=== PATIENT | female | born 1945 | race Hispanic/Latino ===

== ENCOUNTER → 2017-09-06 | Outpatient (CLI) | payer OTHER ==
[~2017-09-06] MED LIST: ASPI-555 PO; CARV12.580 PO; CARV25TA PO; CLOP75TA14 PO; FERR-82 PO; FURO40TA7 PO; INS7030 SQ; INSLAN SQ; INSU100I15 SQ; LISI-613 PO; METF10004 PO; NAPR-1023 PO; PANT20TA PO; POTA-79 PO; PRAV40TA3 PO; PRED20TA3 PO; REGADENOSON 0.4 MG/5 ML PF SYG IVP SCH
== END | disposition home or self-care (01) ==
LOC: SHCH 09:06
PROVIDERS: ATTEND Internal Medicine Cardiovascular Disease
DX: I25.10 Atherosclerotic heart disease of native coronary artery without angina pectoris (principal)
CPT/HCPCS: 78452; 93017; 96374; A9500 ×2; J2785

== ENCOUNTER → 2017-09-16 | Outpatient (CLI) | payer OTHER ==
[~2017-09-16] MED LIST changes: -REGADENOSON 0.4 MG/5 ML PF SYG IVP SCH
== END ==
LOC: OIH 09:03
PROVIDERS: ATTEND Family Medicine
DX: M77.31 Calcaneal spur, right foot (principal)
CPT/HCPCS: 73630

== ENCOUNTER 2017-10-11 08:03 | Observation (INO) | payer OTHER ==
[2017-10-07 10:14] VITALS: BP 149/67
[2017-10-07 10:23] LABS: EOSINOPHILS % (AUTO) 0.1 % (0.0-8.0); LYMPHOCYTES % (AUTO) 16.1 % (21.0-51.0); MEAN CORPUSCULAR HEMOGLOBIN 28.6 pg (27.0-33.0); MEAN CORPUSCULAR HGB CONC 33.9 g/dL (32.0-36.0); MEAN CORPUSCULAR VOLUME 84.2 fL (79-99); NEUTROPHILS % (AUTO) 79.8 % (40.0-77.0); PLATELET COUNT (AUTO) 173 K/uL (130-400); RED CELL DISTRIBUTION WIDTH 14.5 % (11.0-15.5); WHITE BLOOD COUNT (AUTO) 7.1 K/uL (4.8-10.8)
[2017-10-07 10:42] LABS: CREATININE 0.9 mg/dL (0.5-1.5); POTASSIUM 4.1 mmol/L (3.5-5.1)
[2017-10-07 10:55] LABS: INR 1.03 (0.85-1.15); PARTIAL THROMBOPLASTIN TIME 24.7 SEC (26.3-35.5); PROTHROMBIN TIME 10.8 SEC (9.6-11.6)
[2017-10-07 10:57] LABS: BILIRUBIN,URINE NEGATIVE (NEGATIVE); COLOR,URINE YELLOW (YELLOW); GLUCOSE, URINE (UA) NEGATIVE (NEGATIVE); KETONES,URINE NEGATIVE (NEGATIVE); LEUKOCYTE ESTERASE ,URINE LARGE (NEGATIVE); NITRATE,URINE NEGATIVE (NEGATIVE); OCCULT BLOOD,URINE TRACE-LYSED (NEGATIVE); PROTEIN,URINE TRACE (NEGATIVE)
[2017-10-07 11:03] LABS: APPEARANCE,URINE SLIGHTLY CLOUDY (CLEAR)
[2017-10-07 11:24] LABS: BACTERIA,URINE Few /HPF (None Seen); RBC,URINE 0-1 /HPF (0-1)
[2017-10-11] VITALS (12 sets, daily range): BP systolic 115–154; BP diastolic 60–78
[~2017-10-11] VITALS: Ht 167.6 cm; Wt 102.6 kg
[~2017-10-11 08:03] MED LIST changes: -ASPI-555 PO; -CARV12.580 PO; -FERR-82 PO; -INS7030 SQ; -PANT20TA PO
[2017-10-11] MEDS ORDERED: SODIUM CHLORIDE 0.9% 1000ML 1,000 ML IV ONE (09:06)
[2017-10-11] MEDS ORDERED: NITROGLYCERIN 5 MG/ML 10 ML VIAL IV ONE (10:45)
[2017-10-11] MEDS ORDERED: HEPARIN SODIUM 1000UNIT/ML 10ML VIAL ONE (10:45)
[2017-10-11] MEDS ORDERED: LIDOCAINE HCL 1% 20 ML VIAL ONE (10:45)
[2017-10-11] MEDS ORDERED: SODIUM BICARB 50MEQ 50ML VIAL ONE (10:45)
[2017-10-11] MEDS ORDERED: IOPAMIDOL-370 100 ML VIAL IV ONE (10:46)
[2017-10-11] MEDS ORDERED: ISOVUE-370 50ML VIAL IV ONE (10:46)
[2017-10-11] MEDS ORDERED: MIDAZOLAM HCL 1 MG/ML 2ML VIAL ONE ×2 (11:48→12:36)
[2017-10-11] MEDS ORDERED: MEPERIDINE-PF 25 MG/ML SYG ONE ×2 (11:48→12:36)
[2017-10-11] MEDS: SODIUM CHLORIDE 0.9% 1000ML 1,000 ML IV SCH (13:08)
[2017-10-11] MEDS ORDERED: ASPIRIN 81MG TAB.CHEW ONE (13:09)
[2017-10-11] MEDS ORDERED: ASPI-555 PO (13:14)
[2017-10-11] MEDS ORDERED: ONDANSETRON HCL MDV 20ML 2 MG/ML VIAL IVP PRN (13:15)
[2017-10-11] MEDS ORDERED: ALPRAZOLAM 0.5 MG TABLET PO PRN (13:15)
[2017-10-11] MEDS ORDERED: DEXTROSE 50%-WATER 50 ML DISP.SYRIN IV PRN (13:15)
[2017-10-11] MEDS: INSULIN HUMULIN R 100 UNIT/ML 3ML SQ SCH ×2 (17:27→21:00)
[2017-10-11] MEDS: INSULIN LISPRO 100 UNIT/ML 3ML SQ SCH (17:27)
[2017-10-11] MEDS: NAPROXEN 500 MG TABLET PO SCH (21:13)
[2017-10-11] MEDS: FUROSEMIDE 40 MG TABLET PO SCH (21:14)
[2017-10-11] MEDS: LISINOPRIL 20 MG TABLET PO SCH (21:14)
[2017-10-11] MEDS: CARVEDILOL 25 MG TABLET PO SCH (21:14)
[2017-10-12 03:48] VITALS: BP 155/98
[2017-10-12 04:26] LABS: MEAN CORPUSCULAR HEMOGLOBIN 28.4 pg (27.0-33.0); MEAN CORPUSCULAR HGB CONC 33.8 g/dL (32.0-36.0); MEAN CORPUSCULAR VOLUME 83.9 fL (79-99); PLATELET COUNT (AUTO) 185 K/uL (130-400); RED BLOOD CELL COUNT(AUTO) 4.06 MIL/uL (4.00-5.50); RED CELL DISTRIBUTION WIDTH 14.9 % (11.0-15.5); WHITE BLOOD COUNT (AUTO) 5.6 K/uL (4.8-10.8)
[2017-10-12 04:44] LABS: CREATININE 0.7 mg/dL (0.5-1.5); POTASSIUM 3.6 mmol/L (3.5-5.1)
[2017-10-12] MEDS: SODIUM CHLORIDE 0.9% 1000ML 1,000 ML IV SCH (05:34)
[2017-10-12] MEDS: INSULIN HUMULIN R 100 UNIT/ML 3ML SQ SCH (06:02)
[2017-10-12 07:46] VITALS: BP 133/64
[2017-10-12] MEDS ORDERED: INSULIN GLARGINE 100 UNITS/ML 10 ML VIAL SQ SCH (08:00)
[2017-10-12] MEDS: FUROSEMIDE 40 MG TABLET PO SCH (08:56)
[2017-10-12] MEDS: NAPROXEN 500 MG TABLET PO SCH (08:56)
[2017-10-12 08:57] VITALS: BP 133/64
[2017-10-12] MEDS: CARVEDILOL 25 MG TABLET PO SCH (08:57)
[2017-10-12] MEDS: LISINOPRIL 20 MG TABLET PO SCH (08:57)
[2017-10-12] MEDS ORDERED: ASPIRIN 81MG TAB.CHEW PO SCH (09:00)
[2017-10-12] MEDS ORDERED: PREDNISONE 20 MG TABLET PO SCH (09:00)
[2017-10-12] MEDS ORDERED: ATORVASTATIN CALCIUM 10 MG TABLET PO SCH (09:00)
[2017-10-12] MEDS: INSULIN LISPRO 100 UNIT/ML 3ML SQ SCH (09:00)
[2017-10-12] MEDS ORDERED: CLOPIDOGREL BISULFATE 75 MG TAB PO SCH (09:00)
[2017-10-12] MEDS ORDERED: POTASSIUM CHLORIDE 20 MEQ ERTAB PO SCH (09:00)
== END 2017-10-12 11:40 | disposition home or self-care (01) ==
LOC: DAH 08:03 → 2AH 08:04 → DAH 08:04
PROVIDERS: ADMIT Family Medicine; ATTEND Internal Medicine Cardiovascular Disease
DX: I25.119 Atherosclerotic heart disease of native coronary artery with unspecified angina pectoris (principal); I11.0 Hypertensive heart disease with heart failure; I25.5 Ischemic cardiomyopathy; K21.9 Gastro-esophageal reflux disease without esophagitis; J44.9 Chronic obstructive pulmonary disease, unspecified; E11.9 Type 2 diabetes mellitus without complications; E78.5 Hyperlipidemia, unspecified; E66.9 Obesity, unspecified; Z95.5 Presence of coronary angioplasty implant and graft; Z79.899 Other long term (current) drug therapy
CPT/HCPCS: 36415 ×3; 71045; 80048 ×2; 80061; 81001; 82948 ×4; 85025; 85027; 85347 ×2; 85610; 85730; 92921; 93005 ×2; 93459; 96372 ×2; A4606; C1725; C1760; C1769 ×2; C1874; C1887; C1894; C9600; G0378 ×28; J1644; J2175 ×2; J2250 ×2; J3490 ×2; J7030 ×2; Q9967 ×2; 99152; 99153

== ENCOUNTER → 2018-04-13 | Outpatient (CLI) | payer OTHER ==
[~2018-04-13] MED LIST changes: +ASPI-555 PO; +METF-446 PO; -METF10004 PO
== END | disposition home or self-care (01) ==
LOC: OIH 16:20
PROVIDERS: ATTEND Family Medicine
DX: M80.012 Age-related osteoporosis with current pathological fracture, left shoulder (principal); M85.812 Other specified disorders of bone density and structure, left shoulder; J44.9 Chronic obstructive pulmonary disease, unspecified; K21.9 Gastro-esophageal reflux disease without esophagitis; I10 Essential (primary) hypertension; E78.5 Hyperlipidemia, unspecified; Z87.891 Personal history of nicotine dependence
CPT/HCPCS: 73030

== ENCOUNTER → 2018-09-29 | Outpatient (CLI) | payer OTHER | END | disposition home or self-care (01) | LOC: RAH 10:06 | PROVIDERS: ATTEND Family Medicine | DX: Z12.31 Encounter for screening mammogram for malignant neoplasm of breast (principal) | CPT/HCPCS: 77067 ==

== ENCOUNTER → 2019-01-09 | Outpatient (CLI) | payer OTHER | END | disposition home or self-care (01) | LOC: SHCH 10:09 | PROVIDERS: ATTEND Internal Medicine Cardiovascular Disease | DX: I65.23 Occlusion and stenosis of bilateral carotid arteries (principal) | CPT/HCPCS: 93880 ==

== ENCOUNTER → 2019-04-20 | Outpatient (CLI) | payer OTHER | END | disposition home or self-care (01) | LOC: OIH 15:26 | PROVIDERS: ATTEND Family Medicine | DX: M79.641 Pain in right hand (principal) | CPT/HCPCS: 73130 ==

== ENCOUNTER 2019-11-24 10:47 | Observation (INO) | payer OTHER ==
[~2019-11-24] VITALS: Ht 170.2 cm; Wt 97.2 kg
[~2019-11-24 10:47] MED LIST changes: -ASPI-555 PO; +ASPI-556 PO
[2019-11-24 11:00] LABS: BASOPHILS % (AUTO) 0.4 % (0.0-5.0); EOSINOPHILS % (AUTO) 1.1 % (0.0-8.0); HEMATOCRIT 31.8 % (36-48); LYMPHOCYTES % (AUTO) 34.5 % (21.0-51.0); MEAN CORPUSCULAR HEMOGLOBIN 27.7 pg (27.0-33.0); MEAN CORPUSCULAR HGB CONC 32.7 g/dL (32.0-36.0); MEAN CORPUSCULAR VOLUME 84.8 fL (79-99); NEUTROPHILS % (AUTO) 56.6 % (40.0-77.0); PLATELET COUNT (AUTO) 192 K/uL (130-400); RED BLOOD CELL COUNT(AUTO) 3.75 MIL/uL (4.00-5.50); WHITE BLOOD COUNT (AUTO) 5.3 K/uL (4.8-10.8)
[2019-11-24] MEDS ORDERED: ASPIRIN 325 MG TABLET ONE (11:02)
[2019-11-24 11:14] LABS: CREATININE 1.2 mg/dL (0.5-1.5); POTASSIUM 4.1 mmol/L (3.5-5.1)
[2019-11-24 11:23] LABS: ALBUMIN 3.5 g/dL (3.5-5.0); BILIRUBIN,TOTAL 0.3 mg/dL (0.2-1.0); TOTAL PROTEIN, SERUM 7.3 g/dL (6.0-8.3)
[2019-11-24 11:26] LABS: INR 0.96 (0.85-1.15); PARTIAL THROMBOPLASTIN TIME 26.1 SEC (26.3-35.5); PROTHROMBIN TIME 10.4 SEC (9.6-11.6)
[2019-11-24] MEDS ORDERED: ACETAMINOPHEN 325 MG TAB PO PRN ×2 (18:15)
[2019-11-24] MEDS ORDERED: POTASSIUM CHLORIDE 10% ELIXIR 20 MEQ/15 ML UDCUP PO PRN (18:15)
[2019-11-24] MEDS ORDERED: NITROGLYCERIN 0.4 MG SL TAB SL PRN (18:15)
[2019-11-24] MEDS ORDERED: ONDANSETRON HCL 4 MG/2 ML VIAL IVP PRN (18:15)
[2019-11-24] MEDS ORDERED: POTASSIUM CHLORIDE 20MEQ/100ML 100 ML IV PRN (18:15)
[2019-11-24] MEDS ORDERED: GLUCAGON 1MG KIT 1 MG ML IM PRN (18:15)
[2019-11-24] MEDS ORDERED: DEXTROSE 50%-WATER 50 ML DISP.SYRIN IV PRN (18:15)
[2019-11-24] MEDS ORDERED: LIDOCAINE HCL-MPF 1% 2ML VIAL IJ PRN (18:15)
[2019-11-24] MEDS ORDERED: DIPHENHYDRAMINE HCL 25 MG CAPSULE PO PRN (18:15)
[2019-11-24] MEDS ORDERED: LACTULOSE 20 GM/30 ML UDCUP PO PRN (18:15)
[2019-11-24] MEDS ORDERED: ZOLPIDEM TARTRATE 5 MG TAB PO PRN (18:15)
[2019-11-24] MEDS ORDERED: GUAIFENESIN-DM 200/20 MG 10 ML PO PRN (18:15)
[2019-11-24] MEDS ORDERED: CLONIDINE HCL 0.1 MG TABLET PO PRN (18:15)
[2019-11-24] MEDS ORDERED: MAG HYDROX/AL HYDROX/SIMETH ES 30 ML SUSP UDCUP PO PRN (18:15)
[2019-11-24] MEDS ORDERED: DiphenhydrAMINE HCL 50 MG/ML VIAL IVP PRN (18:15)
[2019-11-24] MEDS ORDERED: SODIUM CHLORIDE 0.9% 10 ML VIAL IVP SCH (18:15)
[2019-11-24 19:45] VITALS: BP 140/71
[2019-11-24] MEDS: INSULIN R PO SSI SQ SCH (21:00)
[2019-11-24] MEDS ORDERED: INSU100V3 IJ (22:10)
[2019-11-24] MEDS ORDERED: ATOR10 PO (22:10)
[2019-11-24] MEDS ORDERED: HC130O TP (22:10)
[2019-11-24] MEDS ORDERED: TRAM50TA4 PO (22:10)
[2019-11-24] MEDS ORDERED: IBUP-2077 PO (22:10)
[2019-11-24] MEDS ORDERED: LISI2.5T2 PO (22:10)
[2019-11-24] MEDS ORDERED: LISINOPRIL 2.5 MG TABLET ONE (22:55)
[2019-11-24] MEDS ORDERED: CARVEDILOL 25 MG TABLET PO ONE (22:55)
[2019-11-24] MEDS ORDERED: ATORVASTATIN CALCIUM 20 MG TABLET ONE (22:55)
[2019-11-24 23:09] VITALS: BP 146/71
[2019-11-24] MEDS ORDERED: NITROGLYCERIN 1GM/1 INCH PACKET TD SCH (23:30)
[2019-11-24] MEDS ORDERED: MAGNESIUM 2GM PREMIX 50ML 50 ML IV ONE (23:35)
[2019-11-24 23:53] LABS: TROPONIN I 0.06 ng/mL (0.00-0.06)
[2019-11-25] MEDS ORDERED: NITROGLYCERIN 1GM/1 INCH PACKET TD ONE (00:44)
[2019-11-25 04:00] VITALS: BP 110/68
[2019-11-25 04:34] LABS: HEMATOCRIT 29.2 % (36-48); MEAN CORPUSCULAR HEMOGLOBIN 26.6 pg (27.0-33.0); MEAN CORPUSCULAR HGB CONC 31.5 g/dL (32.0-36.0); MEAN CORPUSCULAR VOLUME 84.4 fL (79-99); RED BLOOD CELL COUNT(AUTO) 3.46 MIL/uL (4.00-5.50); RED CELL DISTRIBUTION WIDTH 14.2 % (11.0-15.5); WHITE BLOOD COUNT (AUTO) 4.7 K/uL (4.8-10.8)
[2019-11-25 05:00] LABS: ALBUMIN 3.2 g/dL (3.5-5.0); BILIRUBIN,TOTAL 0.4 mg/dL (0.2-1.0); POTASSIUM 3.3 mmol/L (3.5-5.1); TOTAL PROTEIN, SERUM 6.6 g/dL (6.0-8.3); TROPONIN I 0.05 ng/mL (0.00-0.06)
[2019-11-25] MEDS: POTASSIUM CHLORIDE 20 MEQ ERTAB PO PRN ×2 (05:46→15:33)
[2019-11-25] MEDS: INSULIN R PO SSI SQ SCH ×4 (06:28→20:05)
[2019-11-25] MEDS ORDERED: HYDROCORTISONE 1% 28.35 GM CREAM TP PRN (06:30)
[2019-11-25] MEDS: NITROGLYCERIN 1GM/1 INCH PACKET TD SCH ×2 (06:30→15:28)
[2019-11-25 08:00] VITALS: BP 122/70
[2019-11-25] MEDS: CARVEDILOL 25 MG TABLET PO SCH ×2 (08:52→21:20)
[2019-11-25] MEDS: POTASSIUM CHLORIDE 20 MEQ ERTAB PO SCH ×2 (08:53→12:53)
[2019-11-25] MEDS: CLOPIDOGREL BISULFATE 75 MG TAB PO SCH (08:54)
[2019-11-25] MEDS: METFORMIN HCL 500 MG TABLET PO SCH ×2 (08:54→16:20)
[2019-11-25] MEDS: TRAMADOL HCL 50 MG TABLET PO SCH ×2 (08:54→21:19)
[2019-11-25] MEDS: FUROSEMIDE 40 MG TABLET PO SCH ×2 (08:54→21:19)
[2019-11-25 11:24] VITALS: BP 136/56
[2019-11-25 11:55] LABS: TROPONIN I 0.04 ng/mL (0.00-0.06)
--- NOTE | 2019-11-25 15:22 | NUR ---
cm note met with patient and states resides at home with adult great grandson, and adult handicap daughter. pt ambulates with cane at times. independent with adls. no provider. dc plan is back to home at hi. no dc needs. Addendum: 11/25/19 at 1526 by HOLLY CHRISTIANSON CM Amended: Links added.
[2019-11-25 16:00] VITALS: BP 102/61
--- NOTE | 2019-11-25 16:01 | NUR ---
NEW CONSULT DR CALVIN RETURN PAGE, PATIENT INFORMATION GIVEN , HE WAS GIVEN THE NAME OF DEFIBRILLATOR [employer] AND PHONE NUMBER. HE WILL FOLLOW-UP ON WHY THEY SAY THEY CAN'T INTERROGATE DEVICE AT THIS TIME.
[2019-11-25 19:05] VITALS: BP 142/71
[2019-11-25] MEDS: LISINOPRIL 2.5 MG TABLET PO SCH (21:00)
[2019-11-25] MEDS: ASPIRIN 81MG TAB.CHEW PO SCH (21:18)
[2019-11-25] MEDS: ATORVASTATIN CALCIUM 10 MG TABLET PO SCH (21:18)
[2019-11-25] MEDS: RANOLAZINE 500 MG TAB.SR.12H PO SCH (21:18)
[2019-11-25 23:06] VITALS: BP 125/66
[2019-11-26 03:33] VITALS: BP 103/67
[2019-11-26] MEDS: MAGNESIUM 2GM PREMIX 50ML 50 ML IV PRN (03:59)
[2019-11-26] MEDS: NITROGLYCERIN 1GM/1 INCH PACKET TD SCH ×4 (05:47→20:23)
[2019-11-26] MEDS: INSULIN R PO SSI SQ SCH ×4 (05:52→21:00)
[2019-11-26] MEDS: METFORMIN HCL 500 MG TABLET PO SCH ×2 (08:00→16:27)
--- NOTE | 2019-11-26 08:00 | NUR ---
PT AAO X 3 REVIEW PLAN OF CARE FOR TODAY, DENIES ANY CHEST PAIN . PT HAS A TELE MONITOR ON. HX OF A-FIB . DENIES ANY DISCOMFORT AND REVIEW CALL LIGHT IN REACH.
[2019-11-26 08:03] VITALS: BP 135/64
[2019-11-26 08:04] VITALS: BP 135/64
[2019-11-26] MEDS: RANOLAZINE 500 MG TAB.SR.12H PO SCH ×2 (08:28→20:20)
[2019-11-26] MEDS: ASPIRIN 81MG TAB.CHEW PO SCH (08:29)
[2019-11-26] MEDS: CARVEDILOL 25 MG TABLET PO SCH ×2 (08:29→20:22)
[2019-11-26] MEDS: FUROSEMIDE 40 MG TABLET PO SCH ×2 (08:30→20:21)
[2019-11-26] MEDS: POTASSIUM CHLORIDE 20 MEQ ERTAB PO SCH (08:30)
[2019-11-26] MEDS: CLOPIDOGREL BISULFATE 75 MG TAB PO SCH (08:32)
[2019-11-26] MEDS: TRAMADOL HCL 50 MG TABLET PO SCH ×2 (08:33→20:24)
[2019-11-26 10:49] VITALS: BP 115/76
--- NOTE | 2019-11-26 14:37 | NUR ---
STAFF FOR THE [employer] DEVICE AT THE BEDSIDE TO INTEROGATE . WITH DETAILS EXPLAIN TO PT ALSO LET HIM KNOW THAT DILLON CORONA WANTED TO SPEAK WITH HIM OF RESULTS STAFF PERSONAL CALLED HIM OF OUTCOME. AND ALSO ORDERS FOR A LEXICAN CARDIOLITE FOR AM . EXPLAIN IN DETAILS TO PT. AND STATED THAT SHE DID NOT KNOW WHY THINGS WERE NOT DONE UPSET REVIEW QUESTIONS AND CALL LIGHT IN REACH
[2019-11-26 15:17] VITALS: BP 147/70
--- NOTE | 2019-11-26 17:30 | NUR ---
PT HX OF DIABETIC. PT IS ON MELFORMIN 1000 MG BID DID NOT GIVEN DOSES ? POSSIBLE PT . PENDING PROCEDURE, ? CONTRAST . EXPLAIN TO HER REGARDING POSSIBLE STUDIES , OKAY NOT TO GIVE THEM FOR NOW . PT IS COVER WITH REG INSULIN SCALE ONE WITH BLOOD SUGARS CHECKS [facility]
[2019-11-26 19:00] VITALS: BP 144/75
[2019-11-26] MEDS: LISINOPRIL 2.5 MG TABLET PO SCH (20:21)
[2019-11-26] MEDS: ATORVASTATIN CALCIUM 10 MG TABLET PO SCH (20:21)
[2019-11-27] VITALS: BP 121/64
[2019-11-27 04:00] VITALS: BP 132/71
[2019-11-27] MEDS: NITROGLYCERIN 1GM/1 INCH PACKET TD SCH ×2 (06:30→14:30)
[2019-11-27] MEDS: INSULIN R PO SSI SQ SCH ×3 (06:47→16:52)
[2019-11-27 07:50] LABS: MAGNESIUM 1.6 mg/dL (1.80-2.40); POTASSIUM 3.8 mmol/L (3.5-5.1)
[2019-11-27 07:52] VITALS: BP 133/66
[2019-11-27] MEDS: METFORMIN HCL 500 MG TABLET PO SCH ×2 (08:00→16:50)
[2019-11-27] MEDS: TRAMADOL HCL 50 MG TABLET PO SCH (09:00)
[2019-11-27] MEDS: MAGNESIUM 2GM PREMIX 50ML 50 ML IV PRN (09:07)
[2019-11-27] MEDS ORDERED: REGADENOSON 0.4 MG/5 ML PF SYG IVP SCH (10:45)
[2019-11-27 13:40] VITALS: BP 145/65
[2019-11-27] MEDS: FUROSEMIDE 40 MG TABLET PO SCH (13:55)
[2019-11-27] MEDS: RANOLAZINE 500 MG TAB.SR.12H PO SCH (13:55)
[2019-11-27] MEDS: ASPIRIN 81MG TAB.CHEW PO SCH (13:56)
[2019-11-27] MEDS: CLOPIDOGREL BISULFATE 75 MG TAB PO SCH (13:57)
[2019-11-27] MEDS: CARVEDILOL 25 MG TABLET PO SCH (13:58)
[2019-11-27] MEDS: POTASSIUM CHLORIDE 20 MEQ ERTAB PO SCH (13:58)
--- NOTE | 2019-11-27 15:45 | NUR ---
CARDIOLOGY DILLON POWELL CALLED AND SAID THAT DR PALMA HAS SEEN THE RESULTS OF LEXISCAN. DILLON SPOKE TO PATIENT REGUARDING RESULTS AND AT THIS TIME ONLY TREATMENT WILL BE MEDICAL MANAGEMENT. PATIENT CAN BE DISCHARGED HOME PER CARDIOLOGY. FOLLOW UP WITH DILLON AT CLINIC ON TUESDAY AT 8AM.
--- NOTE | 2019-11-27 16:00 | NUR ---
DR OVI DIOR UPDATED ON CARDIOLOGY RECOMMENDATIONS. PATIENT CAN BE DISCHARGED HOME AND FOLLOW UP WITH DR DIOR IN 2 DAYS. HOME MEDS TO CONTINUE.
[2019-11-27 16:25] VITALS: BP 134/63
--- NOTE | 2019-11-27 17:20 | NUR ---
DISCHARGE DISCHARGE INSTRUCTIONS GIVEN TO PATIENT, VERBALIZED UNDERSTANDING. CALLED DAUGHTER ROLENA TO EXPLAIN DISCHARGE INSTRUCTIONS, VERBALIZED UNDERSTANDING. DISCONTINUED IV, REMOVED TELEMETRY. NO NEW PRESCRIPTIONS GIVEN.
[2019-11-27] MEDS ORDERED: ATORVASTATIN CALCIUM 20 MG TABLET PO SCH (21:00)
== END 2019-11-27 17:30 | disposition home or self-care (01) ==
LOC: EDH 10:47 → EDHIP 17:40 → 4BH 19:38
PROVIDERS: ADMIT Family Medicine; ATTEND Family Medicine
DX: R07.2 Precordial pain (principal); I25.10 Atherosclerotic heart disease of native coronary artery without angina pectoris; I11.0 Hypertensive heart disease with heart failure; I50.22 Chronic systolic (congestive) heart failure; E78.5 Hyperlipidemia, unspecified; I25.5 Ischemic cardiomyopathy
CPT/HCPCS: 36415 ×3; 71045; 78452; 80053 ×2; 82550 ×4; 82948 ×12; 83735 ×4; 83874 ×3; 83880; 84132; 84484 ×5; 85025; 85027; 85610; 85730; 93005; 93017; 96365; 96366 ×3; A9500 ×2; G0378 ×8; J1815 ×3; J2785; J3475 ×3; 96374

== ENCOUNTER → 2019-12-27 | Outpatient (CLI) | payer OTHER | END | disposition home or self-care (01) | LOC: SHCH 07:44 | PROVIDERS: ATTEND Internal Medicine Cardiovascular Disease | DX: I51.7 Cardiomegaly (principal); I25.5 Ischemic cardiomyopathy ==

== ENCOUNTER → 2020-05-08 | Outpatient (CLI) | payer OTHER ==
[~2020-05-08] MED LIST changes: -ASPI-556 PO; +ATOR10 PO; +HC130O TP; +IBUP-2077 PO; -INSU100I15 SQ; +INSU100V3 IJ; -LISI-613 PO; +LISI2.5T2 PO; -NAPR-1023 PO; -PRAV40TA3 PO; -PRED20TA3 PO; +TRAM50TA4 PO
== END | disposition home or self-care (01) ==
LOC: OIH 07:37
PROVIDERS: ATTEND Family Medicine
DX: H57.11 Ocular pain, right eye (principal); R68.84 Jaw pain
CPT/HCPCS: 70150

== ENCOUNTER → 2020-05-30 | Outpatient (CLI) | payer OTHER | END | disposition home or self-care (01) | LOC: RAH 13:53 | PROVIDERS: ATTEND Family Medicine | DX: Z12.31 Encounter for screening mammogram for malignant neoplasm of breast (principal); N64.89 Other specified disorders of breast | CPT/HCPCS: 77067 ==

== ENCOUNTER 2020-08-31 15:11 | Emergency (ER) | payer OTHER ==
[2020-08-31 15:36] LABS: BASOPHILS % (AUTO) 0.8 % (0.0-5.0); EOSINOPHILS % (AUTO) 1.3 % (0.0-8.0); HEMATOCRIT 30.2 % (36-48); LYMPHOCYTES % (AUTO) 34.3 % (21.0-51.0); MEAN CORPUSCULAR HEMOGLOBIN 27.1 pg (27.0-33.0); MEAN CORPUSCULAR HGB CONC 30.5 g/dL (32.0-36.0); MEAN CORPUSCULAR VOLUME 89.1 fL (79-99); MONOCYTES % (AUTO) 9.2 % (3.0-13.0); NEUTROPHILS % (AUTO) 54.1 % (40.0-77.0); PLATELET COUNT (AUTO) 126 K/uL (130-400); RED BLOOD CELL COUNT(AUTO) 3.39 MIL/uL (4.00-5.50); RED CELL DISTRIBUTION WIDTH 14.4 % (11.0-15.5); WHITE BLOOD COUNT (AUTO) 3.8 K/uL (4.8-10.8)
[2020-08-31 15:45] LABS: POTASSIUM 4.4 mmol/L (3.5-5.1)
[2020-08-31 15:50] LABS: ALBUMIN 3.5 g/dL (3.5-5.0); BILIRUBIN,TOTAL 0.3 mg/dL (0.2-1.0); TOTAL PROTEIN, SERUM 6.9 g/dL (6.0-8.3)
[2020-08-31 16:34] LABS: APPEARANCE,URINE Clear (CLEAR); BILIRUBIN,URINE Negative (NEGATIVE); COLOR,URINE Yellow (YELLOW); GLUCOSE, URINE (UA) Negative (NEGATIVE); KETONES,URINE Negative (NEGATIVE); LEUKOCYTE ESTERASE ,URINE Trace (NEGATIVE); NITRATE,URINE Negative (NEGATIVE); OCCULT BLOOD,URINE Negative (NEGATIVE); PH,URINE 5.5 (5.0-8.0); PROTEIN,URINE POS 1+ mg/dL (NEGATIVE)
[2020-08-31 17:00] LABS: BACTERIA,URINE Few /HPF (None Seen); MUCUS,URINE Few LPF (None Seen); RBC,URINE 0-1 /HPF (0-1); SQUAMOUS EPITHELIAL CELL,UR 0-2 /HPF (0-2)
== END 2020-08-31 18:11 | disposition home or self-care (01) ==
LOC: EDH 15:11
DX: K42.9 Umbilical hernia without obstruction or gangrene (principal); M54.9 Dorsalgia, unspecified; M48.55XA Collapsed vertebra, not elsewhere classified, thoracolumbar region, initial encounter for fracture; Z68.42 Body mass index [BMI] 45.0-49.9, adult; E66.09 Other obesity due to excess calories; I48.91 Unspecified atrial fibrillation; E11.9 Type 2 diabetes mellitus without complications; I10 Essential (primary) hypertension
CPT/HCPCS: 36415; 74176; 80053; 81001; 83690; 84484; 85025; 93005

== ENCOUNTER → 2020-09-16 | Outpatient (CLI) | payer OTHER | END | disposition home or self-care (01) | LOC: RAH 08:34 | PROVIDERS: ATTEND Internal Medicine | DX: R16.0 Hepatomegaly, not elsewhere classified (principal); K76.9 Liver disease, unspecified; Z90.49 Acquired absence of other specified parts of digestive tract | CPT/HCPCS: 76700 ==

== ENCOUNTER 2020-09-23 07:12 | Day surgery (SDC) | payer OTHER ==
[~2020-09-23] VITALS: Ht 172.7 cm; Wt 102.1 kg
[~2020-09-23 07:12] MED LIST changes: +SODIUM CHLORIDE 0.9% 1000ML 1,000 ML IV ONE
[2020-09-23] MEDS ORDERED: PROPOFOL 10 MG/ML 20ML VIAL IV ONE (10:24)
[2020-09-23] MEDS ORDERED: EPHEDRINE SULFATE 50 MG/ML AMPULE ONE (10:46)
[2020-09-23 10:58] VITALS: BP 121/55
[2020-09-23 11:04] VITALS: BP 130/62
[2020-09-23 11:09] VITALS: BP 133/66
[2020-09-23 11:14] VITALS: BP 142/73
[2020-09-23 11:20] VITALS: BP 139/79
== END 2020-09-23 11:52 | disposition home or self-care (01) ==
LOC: DAH 07:12 → ENDO 07:12
PROVIDERS: ATTEND Internal Medicine
DX: D50.9 Iron deficiency anemia, unspecified (principal); Z20.822 Contact with and (suspected) exposure to COVID-19; K57.30 Diverticulosis of large intestine without perforation or abscess without bleeding; K64.8 Other hemorrhoids; K31.89 Other diseases of stomach and duodenum; K76.89 Other specified diseases of liver; E11.9 Type 2 diabetes mellitus without complications; E78.5 Hyperlipidemia, unspecified; I11.0 Hypertensive heart disease with heart failure; I50.9 Heart failure, unspecified; I25.10 Atherosclerotic heart disease of native coronary artery without angina pectoris; I48.91 Unspecified atrial fibrillation; I45.10 Unspecified right bundle-branch block; I25.2 Old myocardial infarction; M81.0 Age-related osteoporosis without current pathological fracture; M19.90 Unspecified osteoarthritis, unspecified site; Z90.49 Acquired absence of other specified parts of digestive tract; Z95.1 Presence of aortocoronary bypass graft; Z95.5 Presence of coronary angioplasty implant and graft; Z79.84 Long term (current) use of oral hypoglycemic drugs; Z79.899 Other long term (current) drug therapy
CPT/HCPCS: 43239; 45378; 82948; 93005; A4215 ×2; A4221; A4222; A4223; A4606; A4620; A4657; A4663; C9803; J2704; J3490; J7030; U0003

== ENCOUNTER 2020-10-10 17:06 | Emergency (ER) | payer OTHER ==
[~2020-10-10 17:06] MED LIST changes: -SODIUM CHLORIDE 0.9% 1000ML 1,000 ML IV ONE
[2020-10-10] MEDS ORDERED: KETOROLAC TROMETHAMINE 30MG/ML ONE (17:57)
== END 2020-10-10 19:01 | disposition home or self-care (01) ==
LOC: EDH 17:06
DX: S90.31XA Contusion of right foot, initial encounter (principal); E11.9 Type 2 diabetes mellitus without complications; I10 Essential (primary) hypertension; Z88.6 Allergy status to analgesic agent; W18.39XA Other fall on same level, initial encounter; Y93.89 Activity, other specified; Y92.098 Other place in other non-institutional residence as the place of occurrence of the external cause; Y99.8 Other external cause status
CPT/HCPCS: 73630; 96372; 99283; J1885

== ENCOUNTER → 2020-11-04 | Outpatient (CLI) | payer OTHER | END | disposition home or self-care (01) | LOC: OIH 09:48 | PROVIDERS: ATTEND Family Medicine | DX: S92.811A Other fracture of right foot, initial encounter for closed fracture (principal); M77.31 Calcaneal spur, right foot; M85.871 Other specified disorders of bone density and structure, right ankle and foot; X58.XXXA Exposure to other specified factors, initial encounter; Y93.89 Activity, other specified; Y92.89 Other specified places as the place of occurrence of the external cause; Y99.8 Other external cause status | CPT/HCPCS: 73630 ==

== ENCOUNTER → 2021-09-07 | Outpatient (CLI) | payer OTHER ==
[~2021-09-07] VITALS: Ht 152.4 cm; Wt 100.7 kg
[~2021-09-07] MED LIST changes: +LISI2.5T13 PO; -LISI2.5T2 PO; +REGADENOSON 0.4 MG/5 ML PF SYG IVP SCH
== END | disposition home or self-care (01) ==
LOC: SHCH 08:33
PROVIDERS: ATTEND Internal Medicine Cardiovascular Disease
DX: I48.91 Unspecified atrial fibrillation (principal); I10 Essential (primary) hypertension; I51.7 Cardiomegaly; R94.39 Abnormal result of other cardiovascular function study; R94.31 Abnormal electrocardiogram [ECG] [EKG]
CPT/HCPCS: 78452; 93017; 96374; A9500 ×2; J2785

== ENCOUNTER 2021-09-29 23:09 | Emergency (ER) | payer OTHER ==
[~2021-09-29] VITALS: Ht 167.6 cm; Wt 102.1 kg
[~2021-09-29 23:09] MED LIST changes: -REGADENOSON 0.4 MG/5 ML PF SYG IVP SCH
[2021-09-29 23:34] LABS: BASOPHILS % (AUTO) 0.3 % (0.0-5.0); EOSINOPHILS % (AUTO) 1.3 % (0.0-8.0); HEMATOCRIT 36.9 % (36-48); LYMPHOCYTES % (AUTO) 34.3 % (21.0-51.0); MEAN CORPUSCULAR HEMOGLOBIN 27.8 pg (27.0-33.0); MEAN CORPUSCULAR HGB CONC 31.2 g/dL (32.0-36.0); MEAN CORPUSCULAR VOLUME 89.1 fL (79-99); NEUTROPHILS % (AUTO) 54.8 % (40.0-77.0); PLATELET COUNT (AUTO) 170 K/uL (130-400); RED BLOOD CELL COUNT(AUTO) 4.14 MIL/uL (4.00-5.50); RED CELL DISTRIBUTION WIDTH 14.1 % (11.0-15.5); WHITE BLOOD COUNT (AUTO) 6.4 K/uL (4.8-10.8)
[2021-09-29 23:45] LABS: CREATININE 1.4 mg/dL (0.5-1.5); POTASSIUM 4.8 mmol/L (3.5-5.1)
[2021-09-29 23:52] LABS: ALBUMIN 3.7 g/dL (3.5-5.0); BILIRUBIN,TOTAL 0.4 mg/dL (0.2-1.0); TOTAL PROTEIN, SERUM 7.7 g/dL (6.0-8.3)
[2021-09-30] MEDS ORDERED: KETOROLAC 15MG/ML VIAL (15MG/ML) IV ONE
[2021-09-30 02:30] VITALS: BP 116/52
== END 2021-09-30 02:46 | disposition home or self-care (01) ==
LOC: EDH 23:09
DX: R07.89 Other chest pain (principal); E11.9 Type 2 diabetes mellitus without complications; I10 Essential (primary) hypertension; J45.909 Unspecified asthma, uncomplicated; Z79.1 Long term (current) use of non-steroidal anti-inflammatories (NSAID); Z79.4 Long term (current) use of insulin; Z79.899 Other long term (current) drug therapy; Z90.49 Acquired absence of other specified parts of digestive tract; Z95.1 Presence of aortocoronary bypass graft
CPT/HCPCS: 36415; 71045; 80053; 84484 ×2; 85025; 85378; 93005; 96374; 99285; J1885

== ENCOUNTER → 2021-10-21 | Outpatient (CLI) | payer OTHER ==
[~2021-10-21] MED LIST changes: +ALEN70TA80 PO; +CYAN-35 PO; +FERR-82 PO; +INSU300I3 SQ
== END | disposition home or self-care (01) ==
LOC: RAH 09:31
PROVIDERS: ATTEND Family Medicine
DX: Z12.31 Encounter for screening mammogram for malignant neoplasm of breast (principal)
CPT/HCPCS: 77067

== ENCOUNTER 2022-01-15 05:24 | Emergency (ER) | payer OTHER ==
[~2022-01-15] VITALS: Ht 165.1 cm; Wt 90.7 kg
[~2022-01-15 05:24] MED LIST changes: +ASPI-1005 PO; -HC130O TP; -IBUP-2077 PO; -INSU300I3 SQ; -TRAM50TA4 PO
[2022-01-15] MEDS ORDERED: LABETALOL 20MG SYG IV ONE (05:25)
[2022-01-15] MEDS ORDERED: IOHEXOL-350 75 ML VIAL IV ONE ×2 (05:38→05:49)
[2022-01-15] MEDS: ALTEPLASE 100 MG VIAL IV SCH ×2 (06:26→06:27)
[2022-01-15 06:28] LABS: BASOPHILS % (AUTO) 0.8 % (0.0-5.0); EOSINOPHILS % (AUTO) 1.3 % (0.0-8.0); HEMATOCRIT 35.4 % (36-48); LYMPHOCYTES % (AUTO) 38.3 % (21.0-51.0); MEAN CORPUSCULAR HEMOGLOBIN 27.9 pg (27.0-33.0); MEAN CORPUSCULAR HGB CONC 32.2 g/dL (32.0-36.0); MEAN CORPUSCULAR VOLUME 86.8 fL (79-99); MONOCYTES % (AUTO) 9.1 % (3.0-13.0); NEUTROPHILS % (AUTO) 50.2 % (40.0-77.0); PLATELET COUNT (AUTO) 147 K/uL (130-400); RED BLOOD CELL COUNT(AUTO) 4.08 MIL/uL (4.00-5.50); RED CELL DISTRIBUTION WIDTH 14.1 % (11.0-15.5); WHITE BLOOD COUNT (AUTO) 3.9 K/uL (4.8-10.8)
[2022-01-15 06:46] LABS: INR 0.99 (0.85-1.15); PROTHROMBIN TIME 10.8 SEC (9.6-11.6)
[2022-01-15] MEDS ORDERED: NICARDIPINE 25MG INJ IV ONE (06:48)
[2022-01-15] MEDS ORDERED: DEXTROSE 5%-WATER 100 ML IV ONE (06:53)
[2022-01-15 06:56] LABS: ALBUMIN 3.3 g/dL (3.5-5.0); BILIRUBIN,TOTAL 0.4 mg/dL (0.2-1.0); POTASSIUM 3.8 mmol/L (3.5-5.1); TOTAL PROTEIN, SERUM 6.9 g/dL (6.0-8.3)
[2022-01-15] MEDS ORDERED: NICARDIPINE 25MG INJ 100 MG in DEXTROSE 5%-WATER 60 ML IV SCH (07:00)
[2022-01-15 09:35] LABS: APPEARANCE,URINE CLEAR (CLEAR); BILIRUBIN,URINE NEGATIVE (NEGATIVE); COLOR,URINE YELLOW (YELLOW); GLUCOSE, URINE (UA) >=1000 mg/dL (NEGATIVE); KETONES,URINE NEGATIVE (NEGATIVE); LEUKOCYTE ESTERASE ,URINE NEGATIVE (NEGATIVE); NITRATE,URINE NEGATIVE (NEGATIVE); OCCULT BLOOD,URINE NEGATIVE (NEGATIVE); PROTEIN,URINE NEGATIVE (NEGATIVE); UROBILINOGEN,URINE 0.2 mg/dL (0.2-1.0)
[2022-01-15 09:51] LABS: BACTERIA,URINE Rare /HPF (None Seen); RBC,URINE 0-1 /HPF (0-1); SQUAMOUS EPITHELIAL CELL,UR Rare /HPF (0-2)
[2022-01-15 10:51] VITALS: BP 136/50
[2022-02-05] MEDS ORDERED: LISI20TA24 PO (11:00)
[2022-02-05] MEDS ORDERED: FOLI1 PO (11:01)
== END 2022-01-15 10:53 | disposition short-term general hospital (02) ==
LOC: EDH 05:24
DX: I63.9 Cerebral infarction, unspecified (principal); Z20.822 Contact with and (suspected) exposure to COVID-19; I25.10 Atherosclerotic heart disease of native coronary artery without angina pectoris; E78.00 Pure hypercholesterolemia, unspecified; Z79.82 Long term (current) use of aspirin; Z79.899 Other long term (current) drug therapy
CPT/HCPCS: 36415; 37195; 70450; 70496; 70498; 71045; 80053; 81001; 82948; 84484; 85025; 85610; 85730; 87088; 87635; 93005; 99291; C9803; J2997; J3490; J7060; Q9967

== ENCOUNTER 2022-02-08 07:42 | Day surgery (SDC) | payer OTHER ==
[2022-02-04 09:51] LABS: BASOPHILS % (AUTO) 0.8 % (0.0-5.0); EOSINOPHILS % (AUTO) 1.9 % (0.0-8.0); LYMPHOCYTES % (AUTO) 39.2 % (21.0-51.0); MEAN CORPUSCULAR HEMOGLOBIN 28.2 pg (27.0-33.0); MEAN CORPUSCULAR HGB CONC 31.1 g/dL (32.0-36.0); MEAN CORPUSCULAR VOLUME 90.4 fL (79-99); MONOCYTES % (AUTO) 10.1 % (3.0-13.0); NEUTROPHILS % (AUTO) 47.7 % (40.0-77.0); PLATELET COUNT (AUTO) 187 K/uL (130-400); RED BLOOD CELL COUNT(AUTO) 3.87 MIL/uL (4.00-5.50); RED CELL DISTRIBUTION WIDTH 14.5 % (11.0-15.5); WHITE BLOOD COUNT (AUTO) 3.8 K/uL (4.8-10.8)
[2022-02-04 09:55] LABS: POTASSIUM 4.4 mmol/L (3.5-5.1)
[2022-02-04 10:07] LABS: INR 0.96 (0.85-1.15); PROTHROMBIN TIME 10.5 SEC (9.6-11.6)
[2022-02-04 10:08] LABS: PARTIAL THROMBOPLASTIN TIME 25.3 SEC (26.3-35.5)
[2022-02-05 10:36] VITALS: BP 165/81
[2022-02-08] VITALS (18 sets, daily range): BP systolic 121–157; BP diastolic 44–89
[~2022-02-08] VITALS: Ht 170.2 cm; Wt 95.4 kg
[~2022-02-08 07:42] MED LIST changes: -ALEN70TA80 PO; -ASPI-1005 PO; +FOLI1 PO; -INSLAN SQ; -INSU100V3 IJ; -LISI2.5T13 PO; +LISI20TA24 PO; -METF-446 PO; -POTA-79 PO
[2022-02-08] MEDS ORDERED: 0.9%NACL 1000ML 1,000 ML IV ONE (08:51)
[2022-02-08] MEDS ORDERED: INSU300I SQ (09:35)
[2022-02-08] MEDS ORDERED: INSU100V3 IJ (09:35)
[2022-02-08] MEDS ORDERED: CEFAZOLIN SODIUM 1 GM VIAL ONE (11:27)
[2022-02-08] MEDS ORDERED: MEPERIDINE-PF 25 MG/ML SYG ONE (11:28)
[2022-02-08] MEDS ORDERED: MIDAZOLAM HCL 1 MG/ML 2ML VIAL ONE (11:29)
[2022-02-08] MEDS ORDERED: BUPIVACAINE/PF 0.25% 30ML VIAL IJ ONE (11:44)
[2022-02-08] MEDS ORDERED: LIDOCAINE HCL 1% 10 ML VIAL ONE (11:44)
[2022-02-08] MEDS ORDERED: PROPOFOL 10 MG/ML 20ML VIAL IV ONE (11:46)
[2022-02-08] MEDS ORDERED: FENTANYL CITRATE PF 50 MCG/1 ML 2ML VIAL ONE (11:46)
[2022-02-08] MEDS ORDERED: ROCURONIUM 10MG/1ML SYR 10 MG/ML ML ONE (11:46)
[2022-02-08] MEDS ORDERED: PHENYLEPHRINE HCL 10 MG/ML 1ML VIAL IV ONE (12:05)
[2022-02-08] MEDS ORDERED: NEOSTIGMINE 5MG/5ML SYR IV ONE (12:36)
[2022-02-08] MEDS ORDERED: GLYCOPYRROLATE 0.2 MG/ML 5 ML VIAL ONE (12:36)
[2022-02-08] MEDS ORDERED: ONDANSETRON 4MG INJ IV PRN (13:30)
[2022-02-08] MEDS ORDERED: CEFAZOLIN SODIUM 1 GM VIAL IVP SCH (13:30)
[2022-02-08] MEDS ORDERED: ACETAMINOPHEN 325 MG TAB PO PRN ×2 (13:30)
== END 2022-02-08 18:10 | disposition home or self-care (01) ==
LOC: DAH 07:42
PROVIDERS: ATTEND Internal Medicine Cardiovascular Disease
DX: Z45.02 Encounter for adjustment and management of automatic implantable cardiac defibrillator (principal); I25.5 Ischemic cardiomyopathy; I11.0 Hypertensive heart disease with heart failure; I50.42 Chronic combined systolic (congestive) and diastolic (congestive) heart failure; J44.9 Chronic obstructive pulmonary disease, unspecified; I25.10 Atherosclerotic heart disease of native coronary artery without angina pectoris; K21.9 Gastro-esophageal reflux disease without esophagitis; I73.9 Peripheral vascular disease, unspecified; I25.2 Old myocardial infarction; I45.10 Unspecified right bundle-branch block; Z79.01 Long term (current) use of anticoagulants; Z86.73 Personal history of transient ischemic attack (TIA), and cerebral infarction without residual deficits; Z82.49 Family history of ischemic heart disease and other diseases of the circulatory system; Z79.899 Other long term (current) drug therapy
CPT/HCPCS: 80048; 85025; 85610; 85730; 36415; 93005; 33262; 82948; 87426; C1722; J3010; J0690 ×2; J2710; J7030; J3490 ×3; J2250; J2704; J2175; J2370; A4215; A4222; A4221; A4663; A4216; A4606; A4223 ×3; 99156

== ENCOUNTER 2022-02-24 20:25 | Emergency (ER) | payer OTHER ==
[~2022-02-24] VITALS: Ht 167.6 cm; Wt 93.9 kg
[~2022-02-24 20:25] MED LIST changes: +INSU100V3 IJ; +INSU300I SQ
[2022-02-24] MEDS ORDERED: ACETAMINOPHEN 500 MG TABLET PO ONE (21:00)
[2022-02-24] MEDS ORDERED: ACET-66 PO (21:48)
[2022-02-24 21:53] VITALS: BP 103/47
== END 2022-02-24 22:07 | disposition home or self-care (01) ==
LOC: EDH 20:25
DX: S80.01XA Contusion of right knee, initial encounter (principal); M25.522 Pain in left elbow; I25.10 Atherosclerotic heart disease of native coronary artery without angina pectoris; E78.00 Pure hypercholesterolemia, unspecified; E11.9 Type 2 diabetes mellitus without complications; I10 Essential (primary) hypertension; Z98.890 Other specified postprocedural states; Z79.899 Other long term (current) drug therapy; Z79.4 Long term (current) use of insulin; W01.0XXA Fall on same level from slipping, tripping and stumbling without subsequent striking against object, initial encounter; Y93.89 Activity, other specified; Y92.098 Other place in other non-institutional residence as the place of occurrence of the external cause; Y99.8 Other external cause status
CPT/HCPCS: 73564

== ENCOUNTER → 2022-02-26 | Outpatient (CLI) | payer OTHER ==
[~2022-02-26] MED LIST changes: +ACET-66 PO
[2022-02-26 12:24] LABS: BASOPHILS % (AUTO) 0.8 % (0.0-5.0); EOSINOPHILS % (AUTO) 2.3 % (0.0-8.0); LYMPHOCYTES % (AUTO) 31.8 % (21.0-51.0); MEAN CORPUSCULAR HEMOGLOBIN 28.2 pg (27.0-33.0); MEAN CORPUSCULAR HGB CONC 32.2 g/dL (32.0-36.0); MEAN CORPUSCULAR VOLUME 87.6 fL (79-99); MONOCYTES % (AUTO) 7.6 % (3.0-13.0); NEUTROPHILS % (AUTO) 57.3 % (40.0-77.0); PLATELET COUNT (AUTO) 208 K/uL (130-400); RED BLOOD CELL COUNT(AUTO) 4.11 MIL/uL (4.00-5.50); RED CELL DISTRIBUTION WIDTH 14.6 % (11.0-15.5); WHITE BLOOD COUNT (AUTO) 5.2 K/uL (4.8-10.8)
[2022-02-26 12:40] LABS: HEMOGLOBIN A1C 7.7 % (4.0-6.0)
[2022-02-26 12:42] LABS: APPEARANCE,URINE SL CLOUDY (CLEAR); BILIRUBIN,URINE NEGATIVE (NEGATIVE); COLOR,URINE YELLOW (YELLOW); GLUCOSE, URINE (UA) >=1000 mg/dL (NEGATIVE); KETONES,URINE NEGATIVE (NEGATIVE); LEUKOCYTE ESTERASE ,URINE NEGATIVE (NEGATIVE); NITRATE,URINE POSITIVE (NEGATIVE); OCCULT BLOOD,URINE NEGATIVE (NEGATIVE); PROTEIN,URINE NEGATIVE (NEGATIVE); UROBILINOGEN,URINE 0.2 mg/dL (0.2-1.0)
[2022-02-26 12:59] LABS: ALBUMIN 3.8 g/dL (3.5-5.0); CREATININE 1.1 mg/dL (0.5-1.5); POTASSIUM 4.4 mmol/L (3.5-5.1); T4 (THYROXINE) 7.7 ug/dL (4.7-13.3); THYROID STIMULATING HORMONE 1.59 uIU/mL (0.36-3.74); TOTAL PROTEIN, SERUM 8.2 g/dL (6.0-8.3)
[2022-02-26 13:02] LABS: BACTERIA,URINE Many /HPF (None Seen); WBC,URINE 26-50 /HPF (0-1)
[2022-02-26 13:20] LABS: B-TYPE NATRIURETIC PEPTIDE 203 pg/mL (0-100)
== END | disposition home or self-care (01) ==
LOC: LAB 11:08
PROVIDERS: ATTEND Physician Assistant
DX: R55 Syncope and collapse (principal); R42 Dizziness and giddiness; I10 Essential (primary) hypertension; Z79.899 Other long term (current) drug therapy
CPT/HCPCS: 36415; 80053; 83036; 83880; 84436; 84443; 84479; 85025; 87077; 87088; 87186

== ENCOUNTER 2022-06-03 18:35 | Emergency (ER) | payer OTHER ==
[~2022-06-03] VITALS: Ht 154.9 cm; Wt 90.7 kg
[~2022-06-03 18:35] MED LIST changes: +CLOP-31 PO; -CLOP75TA14 PO
[2022-06-03 19:14] LABS: BASOPHILS % (AUTO) 0.8 % (0.0-5.0); EOSINOPHILS % (AUTO) 1.6 % (0.0-8.0); HEMATOCRIT 33.9 % (36-48); LYMPHOCYTES % (AUTO) 29.7 % (21.0-51.0); MEAN CORPUSCULAR HEMOGLOBIN 27.4 pg (27.0-33.0); MEAN CORPUSCULAR HGB CONC 31.9 g/dL (32.0-36.0); MONOCYTES % (AUTO) 7.9 % (3.0-13.0); NEUTROPHILS % (AUTO) 59.6 % (40.0-77.0); PLATELET COUNT (AUTO) 199 K/uL (130-400); RED BLOOD CELL COUNT(AUTO) 3.94 MIL/uL (4.00-5.50)
[2022-06-03 19:23] LABS: CREATININE 2.5 mg/dL (0.5-1.5); POTASSIUM 4.6 mmol/L (3.5-5.1)
[2022-06-03 19:32] LABS: ALBUMIN 3.6 g/dL (3.5-5.0); TOTAL PROTEIN, SERUM 7.4 g/dL (6.0-8.3)
[2022-06-03 19:34] LABS: B-TYPE NATRIURETIC PEPTIDE 254 pg/mL (0-100)
[2022-06-03 23:12] VITALS: BP 102/57
== END 2022-06-03 23:16 | disposition home or self-care (01) ==
LOC: EDH 18:35
DX: R07.89 Other chest pain (principal); I25.10 Atherosclerotic heart disease of native coronary artery without angina pectoris; E11.9 Type 2 diabetes mellitus without complications; Z98.890 Other specified postprocedural states; Z86.73 Personal history of transient ischemic attack (TIA), and cerebral infarction without residual deficits; Z79.899 Other long term (current) drug therapy; Z79.4 Long term (current) use of insulin
CPT/HCPCS: 36415; 71045; 80053; 83880; 84484; 85025; 93005

== ENCOUNTER → 2022-09-06 | Outpatient (CLI) | payer OTHER ==
[2022-09-06 12:44] LABS: BASOPHILS % (AUTO) 0.7 % (0.0-5.0); EOSINOPHILS % (AUTO) 1.8 % (0.0-8.0); LYMPHOCYTES % (AUTO) 29.7 % (21.0-51.0); MEAN CORPUSCULAR HEMOGLOBIN 27.1 pg (27.0-33.0); MEAN CORPUSCULAR VOLUME 90.2 fL (79-99); NEUTROPHILS % (AUTO) 58.6 % (40.0-77.0); PLATELET COUNT (AUTO) 157 K/uL (130-400); RED BLOOD CELL COUNT(AUTO) 3.77 MIL/uL (4.00-5.50); RED CELL DISTRIBUTION WIDTH 15.5 % (11.0-15.5); WHITE BLOOD COUNT (AUTO) 4.3 K/uL (4.8-10.8)
[2022-09-06 12:48] LABS: CREATININE 1.3 mg/dL (0.5-1.5); POTASSIUM 4.8 mmol/L (3.5-5.1)
[2022-09-06 13:10] LABS: INR 0.98 (0.85-1.15); PROTHROMBIN TIME 10.7 SEC (9.6-11.6)
== END | disposition home or self-care (01) ==
LOC: LAB 09:41
PROVIDERS: ATTEND Internal Medicine Cardiovascular Disease
DX: I48.0 Paroxysmal atrial fibrillation (principal)
CPT/HCPCS: 36415; 80048; 85025; 85610

== ENCOUNTER → 2022-10-12 | Outpatient (CLI) | payer OTHER ==
[~2022-10-12] MED LIST changes: +AMIO200T68 PO; +APIX5TAB PO; +ASPI-1197 PO; +EMPA25TA PO; +FURO40TA5 PO; +LEVO-70 PO; +LISI10TA24 PO; +REGADENOSON 0.4 MG/5 ML PF SYG IVP ONE
== END | disposition home or self-care (01) ==
LOC: SHCH 08:30
PROVIDERS: ATTEND Internal Medicine Cardiovascular Disease
DX: I45.10 Unspecified right bundle-branch block (principal); R06.09 Other forms of dyspnea
CPT/HCPCS: 78452; 96374; 93017; J2785; A9500 ×2

== ENCOUNTER 2022-10-13 17:36 | Observation (INO) | payer OTHER ==
[~2022-10-13] VITALS: Ht 172.7 cm; Wt 99.8 kg
[~2022-10-13 17:36] MED LIST changes: -AMIO200T68 PO; -APIX5TAB PO; -ASPI-1197 PO; -EMPA25TA PO; -FURO40TA5 PO; -LEVO-70 PO; -LISI10TA24 PO; -REGADENOSON 0.4 MG/5 ML PF SYG IVP ONE
[2022-10-13 18:00] LABS: BASOPHILS % (AUTO) 0.5 % (0.0-5.0); EOSINOPHILS % (AUTO) 0.9 % (0.0-8.0); HEMATOCRIT 36.2 % (36-48); LYMPHOCYTES % (AUTO) 27.4 % (21.0-51.0); MEAN CORPUSCULAR HEMOGLOBIN 27.2 pg (27.0-33.0); MEAN CORPUSCULAR HGB CONC 30.4 g/dL (32.0-36.0); MEAN CORPUSCULAR VOLUME 89.6 fL (79-99); MONOCYTES % (AUTO) 8.1 % (3.0-13.0); NEUTROPHILS % (AUTO) 62.9 % (40.0-77.0); PLATELET COUNT (AUTO) 146 K/uL (130-400); RED BLOOD CELL COUNT(AUTO) 4.04 MIL/uL (4.00-5.50); RED CELL DISTRIBUTION WIDTH 16.4 % (11.0-15.5); WHITE BLOOD COUNT (AUTO) 4.3 K/uL (4.8-10.8)
[2022-10-13 18:22] LABS: APPEARANCE,URINE CLEAR (CLEAR); BILIRUBIN,URINE NEGATIVE (NEGATIVE); COLOR,URINE LIGHT-YELLOW (YELLOW); GLUCOSE, URINE (UA) >=1000 mg/dL (NEGATIVE); KETONES,URINE NEGATIVE (NEGATIVE); LEUKOCYTE ESTERASE ,URINE 250 Leu/uL (NEGATIVE); NITRATE,URINE NEGATIVE (NEGATIVE); OCCULT BLOOD,URINE MODERATE (NEGATIVE); PH,URINE 6.5 (5.0-8.0); PROTEIN,URINE 50 mg/dL (NEGATIVE); UROBILINOGEN,URINE 0.2 mg/dL (0.2-1.0)
[2022-10-13 18:27] LABS: BACTERIA,URINE FEW /HPF (None Seen); SQUAMOUS EPITHELIAL CELL,UR RARE /HPF (0-2); WBC,URINE 51-100 /HPF (0-1); YEAST,URINE BUDDING MOD /HPF (None Seen)
[2022-10-13] MEDS ORDERED: ASPIRIN 325MG TAB PO ONE (18:30)
[2022-10-13 18:49] LABS: CREATININE 1.2 mg/dL (0.5-1.5); POTASSIUM 3.8 mmol/L (3.5-5.1)
[2022-10-13 18:54] LABS: ALBUMIN 3.8 g/dL (3.5-5.0); TOTAL PROTEIN, SERUM 7.5 g/dL (6.0-8.3)
[2022-10-13] MEDS ORDERED: FLUCONAZOLE 200 MG/NS 100 ML 100 ML ONE (20:23)
[2022-10-13] MEDS ORDERED: CEFTRIAXONE 1G VIAL IVP SCH (20:30)
[2022-10-13] MEDS: FLUCONAZOLE 200 MG/NS 100 ML 100 ML IV SCH (20:30)
[2022-10-13] MEDS ORDERED: FLUCONAZOLE 200 MG/NS 100 ML 100 ML IV SCH (20:30)
[2022-10-13 20:41] LABS: AMYLASE 60 U/L (25-115); LIPASE 138 U/L (114-286)
[2022-10-13] MEDS ORDERED: ENOXAPARIN SODIUM 80 MG/0.8 ML SQ SCH (21:00)
[2022-10-13] MEDS ORDERED: ASPIRIN 81MG CHEW TAB PO SCH (21:00)
[2022-10-13] MEDS ORDERED: CEFTRIAXONE 1G VIAL IVP ONE (21:30)
[2022-10-13] MEDS ORDERED: ONDANSETRON 4MG INJ IVP PRN (21:30)
[2022-10-13] MEDS ORDERED: ACETAMINOPHEN 650 MG SUPPOSITORY RC PRN (21:30)
[2022-10-13] MEDS ORDERED: LABETALOL 20MG SYG IV PRN (21:30)
[2022-10-13] MEDS ORDERED: LACTULOSE 20 GM/30 ML UDCUP PO PRN (21:30)
[2022-10-13] MEDS ORDERED: CLONIDINE HCL 0.1 MG TABLET PO PRN (21:30)
[2022-10-13] MEDS ORDERED: TEMAZEPAM 15 MG CAPSULE PO PRN (21:30)
[2022-10-13] MEDS ORDERED: HYDRALAZINE 20MG/ML VIAL IV PRN (21:30)
[2022-10-13] MEDS ORDERED: DOCUSATE SODIUM 100 MG CAP PO PRN (21:30)
[2022-10-13] MEDS ORDERED: ACETAMINOPHEN 325 MG TAB PO PRN (21:30)
[2022-10-13] MEDS ORDERED: EMPA25TA PO (22:07)
[2022-10-13] MEDS ORDERED: ATOR10 PO (22:07)
[2022-10-13] MEDS ORDERED: FURO40TA5 PO (22:07)
[2022-10-13] MEDS ORDERED: AMIO200T68 PO (22:07)
[2022-10-13] MEDS ORDERED: ASPI-1197 PO (22:07)
[2022-10-13] MEDS ORDERED: APIX5TAB PO (22:07)
[2022-10-13] MEDS ORDERED: LISI10TA24 PO (22:07)
[2022-10-14 03:00] LABS: MAGNESIUM 2.2 mg/dL (1.80-2.40); PHOSPHORUS 4.3 mg/dL (2.5-4.9); POTASSIUM 4.3 mmol/L (3.5-5.1)
[2022-10-14] MEDS: INSULIN HUMULIN R 100 UNIT/ML 3ML SQ SCH ×4 (07:30→20:32)
[2022-10-14 07:37] LABS: BASOPHILS % (AUTO) 0.5 % (0.0-5.0); EOSINOPHILS % (AUTO) 0.9 % (0.0-8.0); HEMATOCRIT 34.4 % (36-48); LYMPHOCYTES % (AUTO) 21.7 % (21.0-51.0); MEAN CORPUSCULAR HEMOGLOBIN 27.3 pg (27.0-33.0); MEAN CORPUSCULAR HGB CONC 30.5 g/dL (32.0-36.0); MEAN CORPUSCULAR VOLUME 89.4 fL (79-99); MONOCYTES % (AUTO) 7.7 % (3.0-13.0); PLATELET COUNT (AUTO) 145 K/uL (130-400); RED BLOOD CELL COUNT(AUTO) 3.85 MIL/uL (4.00-5.50); RED CELL DISTRIBUTION WIDTH 16.9 % (11.0-15.5); WHITE BLOOD COUNT (AUTO) 5.5 K/uL (4.8-10.8)
[2022-10-14] MEDS: FLUCONAZOLE 200 MG/NS 100 ML 100 ML IV SCH (09:00)
[2022-10-14 11:00] VITALS: BP 157/76
[2022-10-14] MEDS ORDERED: 0.9% NACL 500ML IV.SOLN 500 ML IV SCH (12:00)
[2022-10-14 12:24] LABS: INR 1.04 (0.85-1.15); PROTHROMBIN TIME 11.3 SEC (9.6-11.6)
[2022-10-14 12:26] LABS: PARTIAL THROMBOPLASTIN TIME 29.3 SEC (26.3-35.5)
[2022-10-14] MEDS: CEFTRIAXONE 2GM VIAL IVP SCH (15:21)
[2022-10-14 15:57] VITALS: BP 160/74
[2022-10-14 20:15] VITALS: BP 149/66
[2022-10-14] MEDS: FUROSEMIDE 40 MG TABLET PO SCH (20:33)
[2022-10-14] MEDS: CARVEDILOL 25 MG TABLET PO SCH (20:35)
[2022-10-14] MEDS ORDERED: ATORVASTATIN 10 MG TABLET PO SCH ×2 (21:00)
[2022-10-14 23:58] VITALS: BP 124/48
[2022-10-15] VITALS: BP 90/61
[2022-10-15 00:05] VITALS: BP 124/48
[2022-10-15 03:42] VITALS: BP 129/62
[2022-10-15] MEDS: INSULIN HUMULIN R 100 UNIT/ML 3ML SQ SCH ×2 (05:57→11:13)
[2022-10-15 07:30] VITALS: BP 141/74
[2022-10-15] MEDS ORDERED: EMPAGLIFLOZIN 25MG TABLET PO SCH (09:00)
[2022-10-15] MEDS ORDERED: AMIODARONE 200 MG TABLET PO SCH (09:00)
[2022-10-15] MEDS: CARVEDILOL 25 MG TABLET PO SCH (09:00)
[2022-10-15] MEDS ORDERED: APIXABAN 5 MG TABLET PO SCH (09:00)
[2022-10-15] MEDS ORDERED: FOLIC ACID 1 MG TABLET PO SCH (09:00)
[2022-10-15] MEDS ORDERED: LISINOPRIL 10 MG TABLET PO SCH (09:00)
[2022-10-15] MEDS ORDERED: ASPIRIN 81MG CHEW TAB PO SCH (09:00)
[2022-10-15 10:51] LABS: HEMATOCRIT 36.4 % (36-48); MEAN CORPUSCULAR HEMOGLOBIN 27.1 pg (27.0-33.0); MEAN CORPUSCULAR HGB CONC 30.5 g/dL (32.0-36.0); PLATELET COUNT (AUTO) 137 K/uL (130-400); RED BLOOD CELL COUNT(AUTO) 4.09 MIL/uL (4.00-5.50); RED CELL DISTRIBUTION WIDTH 16.7 % (11.0-15.5); WHITE BLOOD COUNT (AUTO) 4.2 K/uL (4.8-10.8)
[2022-10-15] MEDS: FUROSEMIDE 40 MG TABLET PO SCH (11:04)
[2022-10-15] MEDS: CEFTRIAXONE 2GM VIAL IVP SCH (11:04)
[2022-10-15 11:24] LABS: BAND NEUTROPHILS % (MANUAL) 8 % (0-2); BASOPHILS % (MANUAL) 1 % (0-2); LYMPHOCYTES % (MANUAL) 35 % (22-44); MONOCYTES % (MANUAL) 6 % (2-9); SEGMENTED NEUTROPHILS % 50 % (40-70)
[2022-10-15 11:25] LABS: MAN.DIFF COMMENT-IMPRESSION MANUAL DIFFERENTIAL; PLATELET MORPHOLOGY COMMENT ADEQUATE
[2022-10-15 11:30] VITALS: BP 162/90
[2022-10-15] MEDS ORDERED: LEVO-70 PO (12:23)
== END 2022-10-15 14:30 | disposition home or self-care (01) ==
LOC: EDH 17:36 → EDHIP 21:02 → 4CH 10-14 10:28
PROVIDERS: ADMIT Internal Medicine Critical Care Medicine; ATTEND Internal Medicine Critical Care Medicine
DX: I25.119 Atherosclerotic heart disease of native coronary artery with unspecified angina pectoris (principal); Z20.822 Contact with and (suspected) exposure to COVID-19; I21.4 Non-ST elevation (NSTEMI) myocardial infarction; I25.5 Ischemic cardiomyopathy; I11.0 Hypertensive heart disease with heart failure; I50.9 Heart failure, unspecified; N30.00 Acute cystitis without hematuria; E66.9 Obesity, unspecified; E78.5 Hyperlipidemia, unspecified; I48.91 Unspecified atrial fibrillation; I45.10 Unspecified right bundle-branch block; E11.65 Type 2 diabetes mellitus with hyperglycemia; I25.2 Old myocardial infarction; Z95.1 Presence of aortocoronary bypass graft; Z79.82 Long term (current) use of aspirin; Z79.01 Long term (current) use of anticoagulants; Z68.31 Body mass index [BMI] 31.0-31.9, adult; Z86.73 Personal history of transient ischemic attack (TIA), and cerebral infarction without residual deficits; Z79.899 Other long term (current) drug therapy
CPT/HCPCS: 96376 ×3; 96372; 96365; 96375; 82150; 84484 ×4; 80053; 83880; 83690; 85025 ×3; 87077; 87088; 87186; 81001; 36415 ×3; 71045; 99291; 93005; 82550; 83735; 84100; 83874; 80048 ×2; 85610; 85730; 82948 ×6; 87635; G0378 ×41; J0360; J1450; J0696 ×4; J1650

== ENCOUNTER → 2022-10-25 | Outpatient (CLI) | payer OTHER ==
[~2022-10-25] MED LIST changes: +AMIO200T68 PO; +APIX5TAB PO; +ASPI-1197 PO; +EMPA25TA PO; +FURO40TA5 PO; +LEVO-70 PO; +LISI10TA24 PO; -LISI20TA24 PO
[2022-10-25 12:27] LABS: BASOPHILS % (AUTO) 0.6 % (0.0-5.0); EOSINOPHILS % (AUTO) 0.9 % (0.0-8.0); HEMATOCRIT 34.4 % (36-48); LYMPHOCYTES % (AUTO) 30.4 % (21.0-51.0); MEAN CORPUSCULAR HEMOGLOBIN 26.5 pg (27.0-33.0); MEAN CORPUSCULAR HGB CONC 29.9 g/dL (32.0-36.0); MEAN CORPUSCULAR VOLUME 88.7 fL (79-99); NEUTROPHILS % (AUTO) 57.9 % (40.0-77.0); PLATELET COUNT (AUTO) 158 K/uL (130-400); RED BLOOD CELL COUNT(AUTO) 3.88 MIL/uL (4.00-5.50); WHITE BLOOD COUNT (AUTO) 5.4 K/uL (4.8-10.8)
[2022-10-25 13:27] LABS: APPEARANCE,URINE CLEAR (CLEAR); COLOR,URINE YELLOW (YELLOW); GLUCOSE, URINE (UA) >=1000 mg/dL (NEGATIVE); KETONES,URINE NEGATIVE (NEGATIVE); LEUKOCYTE ESTERASE ,URINE NEGATIVE Leu/uL (NEGATIVE); NITRATE,URINE NEGATIVE (NEGATIVE); OCCULT BLOOD,URINE NEGATIVE (NEGATIVE); PROTEIN,URINE 20 mg/dL (NEGATIVE); UROBILINOGEN,URINE 0.2 mg/dL (0.2-1.0)
[2022-10-25 13:51] LABS: MUCUS,URINE RARE LPF (None Seen); SQUAMOUS EPITHELIAL CELL,UR RARE /HPF (0-2)
[2022-10-25 13:54] LABS: BILIRUBIN,URINE NEGATIVE (NEGATIVE)
== END | disposition home or self-care (01) ==
LOC: LAB 10:43
PROVIDERS: ATTEND Internal Medicine Cardiovascular Disease
DX: I48.0 Paroxysmal atrial fibrillation (principal); I25.5 Ischemic cardiomyopathy; Z79.899 Other long term (current) drug therapy
CPT/HCPCS: 36415; 81001; 81002; 85025; 87088

== ENCOUNTER → 2022-12-21 | Outpatient (CLI) | payer OTHER | END | disposition home or self-care (01) | LOC: RAH 08:50 | PROVIDERS: ATTEND Family Medicine | DX: Z12.31 Encounter for screening mammogram for malignant neoplasm of breast (principal) | CPT/HCPCS: 77067 ==

== ENCOUNTER 2023-01-24 07:00 | Day surgery (SDC) | payer OTHER ==
[2023-01-20 15:24] LABS: BASOPHILS % (AUTO) 0.4 % (0.0-5.0); EOSINOPHILS % (AUTO) 0.8 % (0.0-8.0); HEMATOCRIT 33.8 % (36-48); MEAN CORPUSCULAR HEMOGLOBIN 26.6 pg (27.0-33.0); MEAN CORPUSCULAR HGB CONC 30.5 g/dL (32.0-36.0); MEAN CORPUSCULAR VOLUME 87.3 fL (79-99); MONOCYTES % (AUTO) 9.7 % (3.0-13.0); NEUTROPHILS % (AUTO) 57.9 % (40.0-77.0); PLATELET COUNT (AUTO) 156 K/uL (130-400); RED BLOOD CELL COUNT(AUTO) 3.87 MIL/uL (4.00-5.50); RED CELL DISTRIBUTION WIDTH 16.8 % (11.0-15.5); WHITE BLOOD COUNT (AUTO) 4.7 K/uL (4.8-10.8)
[2023-01-20 15:30] LABS: CREATININE 1.4 mg/dL (0.5-1.5); POTASSIUM 4.4 mmol/L (3.5-5.1)
[2023-01-20 15:31] LABS: APPEARANCE,URINE CLEAR (CLEAR); BILIRUBIN,URINE NEGATIVE (NEGATIVE); COLOR,URINE LIGHT-YELLOW (YELLOW); GLUCOSE, URINE (UA) >=1000 mg/dL (NEGATIVE); KETONES,URINE NEGATIVE (NEGATIVE); LEUKOCYTE ESTERASE ,URINE NEGATIVE Leu/uL (NEGATIVE); NITRATE,URINE NEGATIVE (NEGATIVE); OCCULT BLOOD,URINE NEGATIVE (NEGATIVE); PH,URINE 5.5 (5.0-8.0); PROTEIN,URINE NEGATIVE (NEGATIVE); UROBILINOGEN,URINE 0.2 mg/dL (0.2-1.0)
[2023-01-20 15:34] LABS: INR 0.96 (0.85-1.15); PROTHROMBIN TIME 11.2 SEC (9.6-11.6)
[2023-01-20 15:35] LABS: PARTIAL THROMBOPLASTIN TIME 28.1 SEC (26.3-35.5)
[2023-01-20 15:48] LABS: B-TYPE NATRIURETIC PEPTIDE 376 pg/mL (0-100)
[2023-01-20 16:09] VITALS: BP 153/79
[2023-01-20 16:17] LABS: BACTERIA,URINE RARE /HPF (None Seen); MUCUS,URINE RARE LPF (None Seen); RBC,URINE 0-1 /HPF (0-1); SQUAMOUS EPITHELIAL CELL,UR RARE /HPF (0-2)
[~2023-01-24] VITALS: Ht 167.6 cm; Wt 98.8 kg
[2023-01-24] VITALS (14 sets, daily range): BP systolic 131–180; BP diastolic 24–95
[~2023-01-24 07:00] MED LIST changes: -ACET-66 PO; -ATOR10 PO; +ATOR40TA69 PO; -CARV25TA PO; -CLOP-31 PO; -CYAN-35 PO; -FERR-82 PO; +FLUT1BLS12 IH; -FURO40TA5 PO; -INSU100V3 IJ; +INSU100V3 SQ; -LEVO-70 PO; -LISI10TA24 PO; +LISI20TA24 PO; +XALA2.5OS OU
[2023-01-24] MEDS ORDERED: SODIUM BICARB 50MEQ 50ML VIAL 50 ML ONE (09:55)
[2023-01-24] MEDS ORDERED: LIDOCAINE HCL 400MG/20ML VIAL ONE (09:55)
[2023-01-24] MEDS ORDERED: MIDAZOLAM HCL 1 MG/ML 2ML VIAL ONE ×3 (09:56→11:27)
[2023-01-24] MEDS ORDERED: IOHEXOL-350 75 ML VIAL IV ONE (09:56)
[2023-01-24] MEDS ORDERED: NICARDIPINE 25MG INJ IV ONE (09:56)
[2023-01-24] MEDS ORDERED: MEPERIDINE-PF 25 MG/ML SYG ONE ×3 (09:56→11:27)
[2023-01-24] MEDS ORDERED: NITROGLYCERIN 50MG VIAL ONE (09:56)
[2023-01-24] MEDS ORDERED: HEPARIN 10,000 UNIT/10ML (1,000 UNIT/ML) VIAL ONE (09:56)
[2023-01-24] MEDS ORDERED: ASPIRIN 325MG EC TAB PO ONE (11:38)
[2023-01-24] MEDS ORDERED: CLOPIDOGREL 300MG TAB ONE (11:38)
[2023-01-24] MEDS ORDERED: DEXTROSE 50%-WATER 50 ML DISP.SYRIN IV PRN (12:00)
[2023-01-24] MEDS ORDERED: GLUCAGON 1MG KIT 1 MG ML IM PRN (12:00)
[2023-01-24] MEDS ORDERED: INSULIN HUMULIN R 100 UNIT/ML 3ML SQ SCH (16:30)
== END 2023-01-24 18:00 | disposition home or self-care (01) ==
LOC: DAH 07:00
PROVIDERS: ATTEND Internal Medicine Cardiovascular Disease
DX: I25.119 Atherosclerotic heart disease of native coronary artery with unspecified angina pectoris (principal); I25.5 Ischemic cardiomyopathy; I25.2 Old myocardial infarction; I45.10 Unspecified right bundle-branch block; I11.0 Hypertensive heart disease with heart failure; I50.42 Chronic combined systolic (congestive) and diastolic (congestive) heart failure; E11.9 Type 2 diabetes mellitus without complications; K21.9 Gastro-esophageal reflux disease without esophagitis; E78.5 Hyperlipidemia, unspecified; E66.9 Obesity, unspecified; J44.9 Chronic obstructive pulmonary disease, unspecified; Z95.5 Presence of coronary angioplasty implant and graft; Z79.01 Long term (current) use of anticoagulants; Z79.899 Other long term (current) drug therapy; Z82.49 Family history of ischemic heart disease and other diseases of the circulatory system; Z86.73 Personal history of transient ischemic attack (TIA), and cerebral infarction without residual deficits; Z79.82 Long term (current) use of aspirin; Z68.41 Body mass index [BMI] 40.0-44.9, adult
CPT/HCPCS: 80048; 83880; 85025; 85610; 85730; 81001; 36415; 71045; 93005; 82948 ×2; 93459; C9600; C1769 ×3; C1887; C1894 ×2; C1760; C1874 ×2; C1725; J3490 ×3; J1644 ×2; J2250 ×3; J2175 ×3; Q9967; A4215; A4222; A4221; A4663; A4216; A4606; C9601; A4223 ×3; 99156; 99157

== ENCOUNTER 2023-05-23 23:13 | Emergency (ER) | payer OTHER ==
[~2023-05-23] VITALS: Ht 167.6 cm; Wt 99.3 kg
[~2023-05-23 23:13] MED LIST changes: -ASPI-1197 PO
[2023-05-23] MEDS ORDERED: ONDANSETRON 4MG INJ ONE (23:29)
[2023-05-23] MEDS ORDERED: ONDANSETRON 4MG INJ IVP ONE (23:30)
[2023-05-23 23:46] LABS: APPEARANCE,URINE CLEAR (CLEAR); BILIRUBIN,URINE NEGATIVE (NEGATIVE); COLOR,URINE LIGHT-YELLOW (YELLOW); GLUCOSE, URINE (UA) >=1000 mg/dL (NEGATIVE); KETONES,URINE NEGATIVE (NEGATIVE); LEUKOCYTE ESTERASE ,URINE NEGATIVE Leu/uL (NEGATIVE); NITRATE,URINE NEGATIVE (NEGATIVE); PROTEIN,URINE NEGATIVE (NEGATIVE); UROBILINOGEN,URINE 0.2 mg/dL (0.2-1.0)
[2023-05-23 23:51] LABS: BASOPHILS # (AUTO) 0.03 K/uL (0.00-0.20); BASOPHILS % (AUTO) 0.5 % (0.0-5.0); EOSINOPHILS # (AUTO) 0.09 K/uL (0.00-0.70); EOSINOPHILS % (AUTO) 1.4 % (0.0-8.0); HEMATOCRIT 36.3 % (36-48); IMMATURE GRANULOCYTE ABSOLUTE 0.02 K/uL (0-1); LYMPHOCYTES # (AUTO) 1.5 K/uL (1.0-4.8); LYMPHOCYTES % (AUTO) 22.9 % (21.0-51.0); MEAN CORPUSCULAR HGB CONC 31.1 g/dL (32.0-36.0); MEAN CORPUSCULAR VOLUME 83.6 fL (79-99); MONOCYTES # (AUTO) 0.6 K/uL (0.1-1.0); MONOCYTES % (AUTO) 9.5 % (3.0-13.0); NEUTROPHILS # (AUTO) 4.2 K/uL (1.8-7.7); NEUTROPHILS % (AUTO) 65.4 % (40.0-77.0); PLATELET COUNT (AUTO) 170 K/uL (130-400); RED BLOOD CELL COUNT(AUTO) 4.34 MIL/uL (4.00-5.50); RED CELL DISTRIBUTION WIDTH 19.7 % (11.0-15.5); WHITE BLOOD COUNT (AUTO) 6.4 K/uL (4.8-10.8)
[2023-05-23 23:54] LABS: ADD UA MICROSCOPIC YES
[2023-05-23 23:55] LABS: MUCUS,URINE RARE LPF (None Seen); RBC,URINE 0-1 /HPF (0-1); SQUAMOUS EPITHELIAL CELL,UR RARE /HPF (0-2); WBC,URINE 0-1 /HPF (0-1)
[2023-05-24 00:02] LABS: CREATININE 1.6 mg/dL (0.5-1.5); POTASSIUM 3.7 mmol/L (3.5-5.1)
[2023-05-24 00:07] LABS: ALBUMIN 3.9 g/dL (3.5-5.0); BILIRUBIN,TOTAL 0.5 mg/dL (0.2-1.0)
[2023-05-24] MEDS ORDERED: IBUP-1493 PO (01:26)
[2023-05-24 01:47] VITALS: BP 136/54; PULSE 60; RESP 18; O2SAT 99
== END 2023-05-24 01:49 | disposition home or self-care (01) ==
LOC: EDH 23:13
DX: K43.9 Ventral hernia without obstruction or gangrene (principal); E11.9 Type 2 diabetes mellitus without complications; E78.00 Pure hypercholesterolemia, unspecified; I10 Essential (primary) hypertension; Z79.01 Long term (current) use of anticoagulants; Z79.4 Long term (current) use of insulin; Z79.51 Long term (current) use of inhaled steroids; Z79.84 Long term (current) use of oral hypoglycemic drugs; Z79.899 Other long term (current) drug therapy; Z86.73 Personal history of transient ischemic attack (TIA), and cerebral infarction without residual deficits; Z95.5 Presence of coronary angioplasty implant and graft
CPT/HCPCS: 99285; 96374; 80053; 83690; 85025; 81001; 36415; 74176; J2405

== ENCOUNTER → 2023-07-02 | Outpatient (CLI) | payer OTHER ==
[~2023-07-02] MED LIST changes: +IBUP-1493 PO
== END | disposition home or self-care (01) ==
LOC: SHCH 09:17
PROVIDERS: ATTEND Internal Medicine Cardiovascular Disease
DX: I08.0 Rheumatic disorders of both mitral and aortic valves (principal); I48.0 Paroxysmal atrial fibrillation; I11.9 Hypertensive heart disease without heart failure
CPT/HCPCS: 93306

== ENCOUNTER 2023-08-18 14:50 | Observation (INO) | payer OTHER ==
[~2023-08-18] VITALS: Ht 167.6 cm; Wt 98.7 kg
[2023-08-18 15:38] LABS: BASOPHILS # (AUTO) 0.02 K/uL (0.00-0.20); BASOPHILS % (AUTO) 0.4 % (0.0-5.0); EOSINOPHILS # (AUTO) 0.03 K/uL (0.00-0.70); EOSINOPHILS % (AUTO) 0.6 % (0.0-8.0); HEMATOCRIT 35.6 % (36-48); IMMATURE GRANULOCYTE ABSOLUTE 0.01 K/uL (0-1); LYMPHOCYTES # (AUTO) 1.6 K/uL (1.0-4.8); LYMPHOCYTES % (AUTO) 33.3 % (21.0-51.0); MEAN CORPUSCULAR HEMOGLOBIN 28.2 pg (27.0-33.0); MEAN CORPUSCULAR VOLUME 88.1 fL (79-99); MONOCYTES # (AUTO) 0.4 K/uL (0.1-1.0); NEUTROPHILS # (AUTO) 2.7 K/uL (1.8-7.7); NEUTROPHILS % (AUTO) 57.5 % (40.0-77.0); PLATELET COUNT (AUTO) 141 K/uL (130-400); RED BLOOD CELL COUNT(AUTO) 4.04 MIL/uL (4.00-5.50); RED CELL DISTRIBUTION WIDTH 14.9 % (11.0-15.5); WHITE BLOOD COUNT (AUTO) 4.7 K/uL (4.8-10.8)
[2023-08-18 16:00] LABS: ALBUMIN 3.7 g/dL (3.5-5.0); BILIRUBIN,TOTAL 0.4 mg/dL (0.2-1.0); CREATININE 2.6 mg/dL (0.5-1.5); POTASSIUM 5.7 mmol/L (3.5-5.1); TOTAL PROTEIN, SERUM 7.6 g/dL (6.0-8.3)
[2023-08-18 17:01] LABS: ADD UA MICROSCOPIC YES; APPEARANCE,URINE CLEAR (CLEAR); BILIRUBIN,URINE NEGATIVE (NEGATIVE); COLOR,URINE LIGHT-YELLOW (YELLOW); GLUCOSE, URINE (UA) 300 mg/dL (NEGATIVE); KETONES,URINE NEGATIVE (NEGATIVE); LEUKOCYTE ESTERASE ,URINE NEGATIVE Leu/uL (NEGATIVE); NITRATE,URINE NEGATIVE (NEGATIVE); OCCULT BLOOD,URINE NEGATIVE (NEGATIVE); PROTEIN,URINE NEGATIVE (NEGATIVE); UROBILINOGEN,URINE 0.2 mg/dL (0.2-1.0)
[2023-08-18 17:09] LABS: BACTERIA,URINE RARE /HPF (None Seen); MUCUS,URINE FEW LPF (None Seen); RBC,URINE 0-1 /HPF (0-1); SQUAMOUS EPITHELIAL CELL,UR FEW /HPF (0-2); WBC,URINE 0-1 /HPF (0-1)
[2023-08-18] MEDS ORDERED: ALBUTEROL 0.083% 2.5 MG/3 ML INH IH ONE (17:17)
[2023-08-18 17:28] VITALS: PULSE 54; RESP 16
[2023-08-18] MEDS ORDERED: INSULIN HUMULIN R 100 UNIT/ML 3ML IV ONE (17:30)
[2023-08-18] MEDS ORDERED: DEXTROSE 50%-WATER 25 GM/50 ML VIAL IV ONE (17:30)
[2023-08-18] MEDS ORDERED: DEXTROSE 50%-WATER 50 ML DISP.SYRIN IV SCH (17:30)
[2023-08-18] MEDS ORDERED: ALBUTEROL 0.083% 2.5 MG/3 ML INH IH SCH (17:30)
[2023-08-18] MEDS ORDERED: NITROGLYCERIN 0.4 MG SL TAB SL PRN (18:30)
[2023-08-18] MEDS ORDERED: GUAIFENESIN-DM 200/20 MG 10 ML PO PRN (18:30)
[2023-08-18] MEDS ORDERED: MAG/ALUM/SIMETH 30 ML UDCUP PO PRN (18:30)
[2023-08-18] MEDS ORDERED: LACTULOSE 20 GM/30 ML UDCUP PO PRN (18:30)
[2023-08-18] MEDS ORDERED: GLUCAGON 1MG KIT 1 MG ML IM PRN (18:30)
[2023-08-18] MEDS ORDERED: 0.9%NACL 1000ML 1,000 ML IV SCH (18:30)
[2023-08-18] MEDS ORDERED: ACETAMINOPHEN 325 MG TAB PO PRN ×2 (18:30)
[2023-08-18] MEDS ORDERED: DEXTROSE 50%-WATER 50 ML DISP.SYRIN IV PRN (18:30)
[2023-08-18 19:27] LABS: INR 0.94 (0.85-1.15)
[2023-08-18 19:28] LABS: PARTIAL THROMBOPLASTIN TIME 28.1 SEC (26.3-35.5)
[2023-08-18 19:53] LABS: HEMOGLOBIN A1C 7.1 % (4.0-6.0)
[2023-08-18 20:11] VITALS: BP 95/40; PULSE 64; RESP 15
[2023-08-18] MEDS: INSULIN HUMULIN R 100 UNIT/ML 3ML SQ SCH (20:48)
[2023-08-18 22:06] LABS: INFLUENZA TYPE A Negative For Type A (NEGATIVE); INFLUENZA TYPE B Negative For Type B (NEGATIVE)
[2023-08-18] MEDS: IPRATROPIUM/ALBUTEROL SULFATE 3 ML SOLUTION IH SCH (22:07)
[2023-08-18 22:08] VITALS: PULSE 58; RESP 18
[2023-08-18 22:10] VITALS: PULSE 58; RESP 19; O2SAT 97
[2023-08-18] MEDS ORDERED: AMIO200T68 PO (22:30)
[2023-08-18] MEDS ORDERED: CLOP75TA32 PO (22:30)
[2023-08-18] MEDS ORDERED: GLIM2TAB30 PO (22:30)
[2023-08-18] MEDS ORDERED: SPIR25TA6 PO (22:30)
[2023-08-18] MEDS ORDERED: NITR0.4T50 SL (22:30)
[2023-08-18] MEDS ORDERED: FURO80TA3 PO (22:31)
[2023-08-18] MEDS ORDERED: FURO40SO PO (22:32)
[2023-08-18] MEDS ORDERED: CETI10TA87 PO (22:34)
[2023-08-18] MEDS ORDERED: FERR324T12 PO (22:36)
[2023-08-18 23:50] VITALS: BP 100/40; PULSE 66; RESP 16
[2023-08-19] VITALS (12 sets, daily range): BP systolic 92–133; BP diastolic 36–83; PULSE 49–93; RESP 16–20; O2SAT 97–100
[2023-08-19] MEDS ORDERED: KAYEXALATE 15GM/60ML PO ONE (01:30)
[2023-08-19] MEDS: IPRATROPIUM/ALBUTEROL SULFATE 3 ML SOLUTION IH SCH ×2 (01:30→06:49)
[2023-08-19] MEDS: INSULIN HUMULIN R 100 UNIT/ML 3ML SQ SCH ×6 (07:30→21:00)
[2023-08-19 08:27] LABS: BASOPHILS # (AUTO) 0.02 K/uL (0.00-0.20); BASOPHILS % (AUTO) 0.5 % (0.0-5.0); EOSINOPHILS # (AUTO) 0.03 K/uL (0.00-0.70); EOSINOPHILS % (AUTO) 0.8 % (0.0-8.0); HEMATOCRIT 32.4 % (36-48); IMMATURE GRANULOCYTE ABSOLUTE 0.01 K/uL (0-1); LYMPHOCYTES # (AUTO) 1.1 K/uL (1.0-4.8); LYMPHOCYTES % (AUTO) 30.9 % (21.0-51.0); MEAN CORPUSCULAR HEMOGLOBIN 28.3 pg (27.0-33.0); MEAN CORPUSCULAR HGB CONC 31.8 g/dL (32.0-36.0); MONOCYTES # (AUTO) 0.4 K/uL (0.1-1.0); MONOCYTES % (AUTO) 9.8 % (3.0-13.0); NEUTROPHILS # (AUTO) 2.1 K/uL (1.8-7.7); NEUTROPHILS % (AUTO) 57.7 % (40.0-77.0); PLATELET COUNT (AUTO) 129 K/uL (130-400); RED BLOOD CELL COUNT(AUTO) 3.64 MIL/uL (4.00-5.50); RED CELL DISTRIBUTION WIDTH 15.2 % (11.0-15.5); WHITE BLOOD COUNT (AUTO) 3.7 K/uL (4.8-10.8)
[2023-08-19 08:43] LABS: CREATININE 1.9 mg/dL (0.5-1.5); POTASSIUM 3.9 mmol/L (3.5-5.1)
[2023-08-19] MEDS ORDERED: LISINOPRIL 20 MG TABLET PO SCH (09:00)
[2023-08-19] MEDS ORDERED: NITROGLYCERIN 0.4 MG SL TAB SL PRN (09:00)
[2023-08-19] MEDS ORDERED: SPIRONOLACTONE 25 MG TAB PO SCH (09:00)
[2023-08-19] MEDS ORDERED: ENOXAPARIN SODIUM 30 MG/0.3 ML SQ SCH (09:00)
[2023-08-19] MEDS ORDERED: IPRATROPIUM/ALBUTEROL SULFATE 3 ML SOLUTION IH PRN (10:00)
[2023-08-19] MEDS: FERROUS FUMARATE 324 MG TABLET PO SCH (10:33)
[2023-08-19] MEDS: FOLIC ACID 1 MG TABLET PO SCH (10:33)
[2023-08-19] MEDS: ATORVASTATIN 40 MG TABLET PO SCH (10:33)
[2023-08-19] MEDS: AMIODARONE 200 MG TABLET PO SCH ×2 (10:33→21:30)
[2023-08-19] MEDS: EMPAGLIFLOZIN 25MG TABLET PO SCH (10:34)
[2023-08-19] MEDS: APIXABAN 5 MG TABLET PO SCH ×2 (10:34→21:30)
[2023-08-19] MEDS: CLOPIDOGREL 75MG TAB PO SCH (10:34)
[2023-08-19] MEDS ORDERED: LATANOPROST 2.5 ML DROPS OU SCH (21:00)
[2023-08-19] MEDS: CETIRIZINE HCL 5 MG TABLET PO SCH (21:30)
[2023-08-19] MEDS: INSULIN GLARGINE 100 UNITS/ML 10 ML VIAL SQ SCH (21:37)
[2023-08-20 03:27] VITALS: BP 119/56; PULSE 54; RESP 18
[2023-08-20 05:02] LABS: BASOPHILS # (AUTO) 0.03 K/uL (0.00-0.20); BASOPHILS % (AUTO) 0.8 % (0.0-5.0); EOSINOPHILS % (AUTO) 2.6 % (0.0-8.0); HEMATOCRIT 32.3 % (36-48); IMMATURE GRANULOCYTE ABSOLUTE 0.02 K/uL (0-1); LYMPHOCYTES # (AUTO) 1.1 K/uL (1.0-4.8); LYMPHOCYTES % (AUTO) 29.1 % (21.0-51.0); MEAN CORPUSCULAR HEMOGLOBIN 28.5 pg (27.0-33.0); MEAN CORPUSCULAR HGB CONC 31.3 g/dL (32.0-36.0); MEAN CORPUSCULAR VOLUME 91.2 fL (79-99); MONOCYTES # (AUTO) 0.4 K/uL (0.1-1.0); MONOCYTES % (AUTO) 10.5 % (3.0-13.0); NEUTROPHILS # (AUTO) 2.2 K/uL (1.8-7.7); NEUTROPHILS % (AUTO) 56.5 % (40.0-77.0); PLATELET COUNT (AUTO) 134 K/uL (130-400); RED BLOOD CELL COUNT(AUTO) 3.54 MIL/uL (4.00-5.50); RED CELL DISTRIBUTION WIDTH 15.1 % (11.0-15.5); WHITE BLOOD COUNT (AUTO) 3.9 K/uL (4.8-10.8)
[2023-08-20 05:13] LABS: ALBUMIN 3.1 g/dL (3.5-5.0); BILIRUBIN,TOTAL 0.4 mg/dL (0.2-1.0); CREATININE 1.5 mg/dL (0.5-1.5); MAGNESIUM 2.8 mg/dL (1.80-2.40); PHOSPHORUS 3.9 mg/dL (2.5-4.9); POTASSIUM 4.1 mmol/L (3.5-5.1); TOTAL PROTEIN, SERUM 6.5 g/dL (6.0-8.3)
[2023-08-20] MEDS: INSULIN HUMULIN R 100 UNIT/ML 3ML SQ SCH ×4 (05:20→12:30)
[2023-08-20 06:20] VITALS: RESP 18; O2SAT 95
[2023-08-20 08:00] VITALS: BP 136/67; PULSE 50; RESP 18; O2SAT 98
[2023-08-20] MEDS: INSULIN GLARGINE 100 UNITS/ML 10 ML VIAL SQ SCH (09:00)
[2023-08-20] MEDS: ATORVASTATIN 40 MG TABLET PO SCH (09:18)
[2023-08-20] MEDS: CLOPIDOGREL 75MG TAB PO SCH (09:18)
[2023-08-20] MEDS: FOLIC ACID 1 MG TABLET PO SCH (09:18)
[2023-08-20] MEDS: APIXABAN 5 MG TABLET PO SCH (09:19)
[2023-08-20] MEDS: AMIODARONE 200 MG TABLET PO SCH (09:19)
[2023-08-20] MEDS: FERROUS FUMARATE 324 MG TABLET PO SCH (09:20)
[2023-08-20] MEDS: EMPAGLIFLOZIN 25MG TABLET PO SCH (09:20)
[2023-08-20] MEDS: CETIRIZINE HCL 5 MG TABLET PO SCH (09:21)
[2023-08-20 12:00] VITALS: BP 120/57; PULSE 48; RESP 18
== END 2023-08-20 15:35 | disposition home or self-care (01) ==
LOC: EDH 14:50 → EDHIP 18:14 → 3DH 23:33
PROVIDERS: ADMIT Internal Medicine Critical Care Medicine; ATTEND Internal Medicine Critical Care Medicine
DX: N17.9 Acute kidney failure, unspecified (principal); E87.5 Hyperkalemia; E11.65 Type 2 diabetes mellitus with hyperglycemia; I13.0 Hypertensive heart and chronic kidney disease with heart failure and stage 1 through stage 4 chronic kidney disease, or unspecified chronic kidney disease; E11.22 Type 2 diabetes mellitus with diabetic chronic kidney disease; N18.9 Chronic kidney disease, unspecified; I50.9 Heart failure, unspecified; I95.9 Hypotension, unspecified; I25.10 Atherosclerotic heart disease of native coronary artery without angina pectoris; E78.5 Hyperlipidemia, unspecified; I48.91 Unspecified atrial fibrillation; Z86.73 Personal history of transient ischemic attack (TIA), and cerebral infarction without residual deficits; Z79.4 Long term (current) use of insulin; Z95.1 Presence of aortocoronary bypass graft; Z79.899 Other long term (current) drug therapy; Z95.810 Presence of automatic (implantable) cardiac defibrillator
CPT/HCPCS: 94640 ×4; 94664; 96374; 96361 ×2; 96375; 99284; 83036; 84484; 80053 ×2; 83880; 85025 ×3; 85610; 85730; 87804 ×2; 82948 ×7; 81001; 36415 ×3; 71045; 93005; 80048; 76770; 97161; 97116; 83735; 84100; J1815 ×4; G0378 ×45; J7070

== ENCOUNTER → 2025-02-12 | Outpatient (CLI) | payer OTHER ==
[~2025-02-12] MED LIST changes: -AMIO200T68 PO; +AMOX-426 PO; +CLOP75TA32 PO; +FERR324T12 PO; -FLUT1BLS12 IH; +FURO40TA5 PO; -FURO40TA7 PO; +HYDR25TA67 PO; -IBUP-1493 PO; -INSU100V3 SQ; -INSU300I SQ; -LISI20TA24 PO; +POLY17PO4 PO
== END | disposition home or self-care (01) ==
LOC: RAH 07:41
PROVIDERS: ATTEND Family Medicine
DX: Z12.31 Encounter for screening mammogram for malignant neoplasm of breast (principal)
CPT/HCPCS: 77067